=== PATIENT | female | born 1975 | race Hispanic/Latino ===

== ENCOUNTER 2018-02-20 11:23 | Inpatient (IN) | payer BC, OTHER ==
[~2018-02-20] VITALS: Ht 175.3 cm; Wt 71.7 kg
[2018-02-20 12:35] LABS: BASOPHILS # (AUTO) 0.1 (0.0-0.1); BASOPHILS % 0.9 % (0.0-1.0); EOSINOPHILS # (AUTO) 0.1 (0.0-0.4); HEMATOCRIT 42.9 % (34.2-44.1); HEMOGLOBIN 13.5 g/dL (12.0-16.0); LYMPHOCYTES # (AUTO) 2.9 (1.0-3.2); LYMPHOCYTES % 36.6 % (18.0-39.1); MEAN CORPUSCULAR HEMOGLOBIN 27.8 pg (28-32); MEAN CORPUSCULAR HGB CONC 31.5 g/dL (31-35); MEAN CORPUSCULAR VOLUME 88.3 fL (81-99); MONOCYTES # (AUTO) 0.5 (0.2-0.8); MONOCYTES % 6.5 % (4.4-11.3); NEUTROPHILS # (AUTO) 4.3 (2.1-6.9); NEUTROPHILS % 54.7 % (38.7-80.0); PLATELET COUNT 467 x10e3/uL (140-360); RED BLOOD COUNT 4.86 x10e6/uL (3.6-5.1); RED CELL DISTRIBUTION WIDTH 14.8 % (11.7-14.4)
[2018-02-20 12:52] LABS: ALANINE AMINOTRANSFERASE 12 IU/L (0-55); ALBUMIN 3.5 g/dL (3.5-5.0); ALBUMIN/GLOBULIN RATIO 0.7 (0.8-2.0); ALKALINE PHOSPHATASE 85 IU/L (40-150); ANION GAP 13.8 mmol/L (8-16); BLOOD UREA NITROGEN 10 mg/dL (7-26); BUN/CREATININE RATIO 14 (6-25); CALCIUM 9.7 mg/dL (8.4-10.2); CARBON DIOXIDE 27 mmol/L (22-29); CHLORIDE 100 mmol/L (98-107); CREATININE, SERUM 0.74 mg/dL (0.57-1.11); EST GLOMERULAR FILTRATION RATE > 60 ML/MIN (60-); GLUCOSE 81 mg/dL (74-118); POTASSIUM 3.8 mmol/L (3.5-5.1); SODIUM 137 mmol/L (136-145)
[2018-02-20 13:35] LABS: COLOR,URINE YELLOW (YELLOW)
[2018-02-20 13:36] LABS: BILIRUBIN,URINE NEGATIVE (NEGATIVE); KETONES,URINE NEGATIVE (NEGATIVE); NITRITE,URINE POSITIVE (NEGATIVE); PROTEIN,URINE DIPSTICK NEGATIVE (NEGATIVE); URINE UROBILINOGEN 0.2 mg/dL (0.2 - 1)
[2018-02-20 13:41] LABS: WBC,URINE (MAN) 21-50 /HPF (0-5)
[2018-02-20 13:43] LABS: CLARITY,URINE HAZY (CLEAR); EPITHELIAL CELLS,URINE MODERATE /LPF; LEUKOCYTE ESTERASE ,URINE 1+ (NEGATIVE)
[2018-02-20 13:45] LABS: BACTERIA,URINE MODERATE /HPF
[2018-02-20] MEDS ORDERED: HYDROCODONE/APAP 5MG-325MG TAB PO ONE (14:30)
[2018-02-20] MEDS: SODIUM CHLORIDE 0.9% 1000ML 1,000 ML IV SCH (15:15)
[2018-02-20] MEDS ORDERED: LORAZEPAM INJ 2 MG/ML VIAL IV ONE (15:15)
[2018-02-20] MEDS: ONDANSETRON HCL INJ 2 MG/ML VIAL IV PRN (16:12)
[2018-02-20] MEDS: CEFEPIME HCL 1 GM VIAL IV SCH ×2 (16:12→21:54)
[2018-02-20] MEDS: MORPHINE SULFATE 2 MG/ML SYR IV PRN ×2 (16:12→22:09)
--- NOTE | 2018-02-20 16:39 | Diagnostic Imaging Report ---
PROCEDURE: CT ABDOMEN AND PELVIS WITH CONTRAST TECHNIQUE: The abdomen and pelvis were scanned utilizing a multidetector helical scanner from the diaphragm to the lesser trochanter after the IV administration of 100 cc of Isovue 370 and the oral administration of water. Coronal and sagittal multiplanar reformations were obtained. COMPARISON: None. INDICATIONS: FLANK PAIN, OBSTRUCTION, PYELONEPHRITIS FINDINGS: LOWER THORAX: Unremarkable HEPATOBILIARY: Decreased attenuation of the hepatic parenchyma compared to the spleen, consistent with steatosis. No focal lesions. No biliary ductal dilation. Cholecystectomy clips. SPLEEN: No splenomegaly. PANCREAS: No focal masses or ductal dilatation. ADRENALS: No adrenal nodules. KIDNEYS/URETERS: Symmetrical enhancement. Minimal right cortical striations. Moderate bilateral hydronephrosis and bilateral mild hydroureter, with abrupt changing caliber at the posterior aspect of the mass described below. No renal or ureteral calculi. 1.0 x 0.8 cm mostly exophytic lesion in the mid to inferior right kidney (series 2 image 37 and coronal image 60), with the measured density of 57 HU. No other focal lesions. PELVIC ORGANS/BLADDER: Bladder is unremarkable. There is an approximately 13.4 x 9.9 x 12.4 cm heterogeneously enhancing mass in the uterus, likely representing a large fibroid. No adnexal masses. PERITONEUM / RETROPERITONEUM: No free air or fluid. LYMPH NODES: No lymphadenopathy. VESSELS: Unremarkable. GI TRACT: No distention or wall thickening. BONES AND SOFT TISSUES: No aggressive lytic lesions. Bilateral gluteal region soft tissue calcified granulomas. IMPRESSION: 1. Moderate bilateral hydronephrosis and bilateral mild hydroureter secondary to obstruction from large uterine fibroid. No renal or ureteral calculi. 2. Minimal right cortical striations, which may represent mild pyelonephritis, in the appropriate clinical setting. 3. High density 1.0 cm, mostly exophytic lesion in the mid to inferior right kidney, which is indeterminate. This can be assessed with renal ultrasound. 4. Hepatic steatosis. Frank Farmer M.D. Dictated by: Frank Farmer M.D. on 02/20/2018 at 16:39 Electronically approved by: Frank Farmer M.D. on 02/20/2018 at 16:39
[2018-02-20 17:12] VITALS: BP 124/63
[2018-02-20] MEDS ORDERED: IOPAMIDOL 370 MG/ML 200 ML INFUS..BTL INJ ONE (17:12)
[2018-02-20] MEDS ORDERED: SODIUM CHLORIDE 0.9% 50ML 50 ML ONE (17:12)
[2018-02-20 18:16] VITALS: BP 124/63
[2018-02-20 18:29] VITALS: BP 124/63
[2018-02-20 20:00] VITALS: BP 99/54
[2018-02-21] VITALS (7 sets, daily range): BP systolic 90–109; BP diastolic 49–71
[2018-02-21] MEDS: SODIUM CHLORIDE 0.9% 1000ML 1,000 ML IV SCH ×3 (03:44→20:27)
[2018-02-21] MEDS: MORPHINE SULFATE 2 MG/ML SYR IV PRN ×4 (04:50→22:15)
[2018-02-21] MEDS: CEFEPIME HCL 1 GM VIAL IV SCH ×2 (06:17→20:27)
[2018-02-21] MEDS: ONDANSETRON HCL INJ 2 MG/ML VIAL IV PRN ×3 (12:38→22:15)
--- NOTE | 2018-02-21 14:06 | History and Physical ---
CHIEF COMPLAINT: Recurrent urinary tract infection. PCP: Dr. Teja Alvarenga. HISTORY: This is a 42-year-old female who has been treated by Dr. Alvarenga for the past 2 months with recurrent urinary tract infection. The infection did not improve. As a matter of fact, she was having increasing abdominal pain. She had increase in dysuria. The patient came to the hospital for further evaluation. Here, the patient had a urinalysis showing that her urine remained with 1+ leukocyte esterase and moderate bacteria. The patient may have multi-resistant infection, but her urine culture is still pending. The imaging test that was done is showing that the patient has basically moderate bilateral hydronephrosis and bilateral mild hydroureter secondary to obstruction from a large uterine fibroid. There was no renal or ureteral calculi. The patient is otherwise stable. She does have high density 1.0 cm right kidney lesion. Further evaluation is still pending. PAST MEDICAL HISTORY: Recurrent urinary tract infections. PAST SURGICAL HISTORY: Two C-sections, cholecystectomy, appendectomy, and tummy tuck. SOCIAL HISTORY: Patient does not smoke or use alcohol. No recreational drugs. ALLERGIES: NO KNOWN ALLERGY. HOME MEDICATIONS: None. REVIEW OF SYSTEMS: As mentioned. PHYSICAL EXAMINATION: VITAL SIGNS: Temperature is 98, blood pressure 95/49, pulse rate 74, and respirations 18. GENERAL: The patient is in no acute distress. She is awake. HEENT: Normocephalic, atraumatic. Anicteric. NECK: Supple grossly. PULMONARY: Clear. CARDIOVASCULAR: Regular rate and rhythm. ABDOMEN: Soft. EXTREMITIES: No cyanosis or edema. NEUROLOGIC: No gross focal deficit. LABORATORY: Sodium is 137, potassium 3.8, chloride 100, bicarb 27, BUN 10, creatinine 0.7, and glucose 81. WBC is 8, hemoglobin 13.5, hematocrit 42.9, and platelets 467. IMPRESSION 1. Urinary outlet obstruction secondary to large uterine fibroid. 2. Bilateral hydronephrosis and hydroureter. 3. Recurrent urinary tract infection, possible multidrug resistant. 4. Urinary retention. PLAN: Kam catheter. Consultation with Dr. Yared Del Rosario and associates. Antibiotics. IV fluid. Regular diet. We will monitor the patient closely and check the urine culture. Job#: [id number] SAMUEL
[2018-02-22] VITALS (8 sets, daily range): BP systolic 100–136; BP diastolic 50–70
[2018-02-22] MEDS: ONDANSETRON HCL INJ 2 MG/ML VIAL IV PRN ×2 (02:15→06:25)
[2018-02-22] MEDS: MORPHINE SULFATE 2 MG/ML SYR IV PRN ×3 (02:15→19:21)
[2018-02-22] MEDS: CEFEPIME HCL 1 GM VIAL IV SCH (08:51)
[2018-02-22] MEDS ORDERED: MEROPENEM 1GM 100 ML IV SCH (09:15)
[2018-02-22] MEDS ORDERED: MEROPENEM 1 GM VIAL IV SCH ×2 (09:26→12:00)
--- NOTE | 2018-02-22 11:37 | Consultation ---
DATE OF CONSULTATION: REASON FOR CONSULTATION: Pyelonephritis, UTI with multidrug-resistant ESBL. Thank you so much for asking me to see this patient. HISTORY OF PRESENT ILLNESS: This is a very pleasant, 42-year-old female who has in the last 2 months been having problem with UTI. She starting by having infection with pain on the right side. She saw her physician who gave her oral antibiotic. She got better a few days later and then had pain on the left side. Again, she was given an antibiotic for a week and she got better. Then she started to have pain again. Then a urine culture was obtained and showed that she had multidrug-resistant pathogen. She was tried on nitrofurantoin without any improvement, so the patient was sent to the hospital. She was started originally on cefepime, but the urine culture is showing that she has a multidrug resistance, sensitive only to meropenem. Infectious disease was consulted today. I had a long discussion with the patient and her . The patient was admitted. Her laboratory data reviewed. Her urine showed positive leukocyte esterase, bacteria multidrug-resistant E. coli. The CT scan showed bilateral hydronephrosis, bilateral mild hydroureter secondary to obstruction from a large uterine fibroid tumor. PAST MEDICAL HISTORY: UTI recently. PAST SURGICAL HISTORY: Two C-sections, cholecystectomy, appendectomy, tummy tuck. SOCIAL HISTORY: There is no smoking, drug abuse or alcohol abuse. FAMILY HISTORY: Noncontributory. REVIEW OF SYSTEMS HEENT: There is no headache, visual changes or hearing changes. GI: There is no nausea, no vomiting, no diarrhea. CARDIAC: There is no arrhythmia or chest pain. NEURO: No seizure activity or local weakness. A 14-point review of systems was all negative. LABORATORY DATA: White count 7.89, hemoglobin 13.5, sodium 137, potassium 3.8, creatinine 0.74. PHYSICAL EXAMINATION GENERAL: She is currently alert and oriented, does not seem to be in acute distress. VITALS: Stable, currently afebrile. HEENT: She is not icteric. NECK: Supple. CHEST: Clear. HEART: S1 and S2. No murmur. ABDOMEN: Soft. Bowel sounds present. No tenderness. EXTREMITIES: No edema. SKIN: There is no rash. You can feel the uterus in the suprapubic area. IMPRESSION: Urinary tract infection in a patient with extended spectrum beta lactamase with obstruction secondary to large uterus. Will treat her with IV meropenem 500 IV q.6. Eventually, she will need a hysterectomy but would like to get rid of the infection first. Will follow with you. Will arrange outpatient IV antibiotics. Will discuss with [facility] in the morning. Job#: [id number]
[2018-02-22] MEDS ORDERED: MEROPENEM 500 MG VIAL IV SCH (12:00)
[2018-02-22] MEDS: SODIUM CHLORIDE 0.9% 1000ML 1,000 ML IV SCH (14:12)
[2018-02-22] MEDS: MEROPENEM 500 MG VIAL IV SCH ×2 (15:12→20:52)
--- NOTE | 2018-02-22 16:22 | Diagnostic Imaging Report ---
EXAMINATION: CHEST XRAY LINE PLACEMENT INDICATION: \S\PICC LINE INSERTION \S\[id number] \S\1512 \S\N COMPARISON: None FINDINGS: AP view TUBES and LINES: Left PICC with tip overlying the cavoatrial junction. LUNGS: Lungs are well inflated. Lungs are clear. There is no evidence of pneumonia or pulmonary edema. PLEURA: No pleural effusion or pneumothorax. HEART AND MEDIASTINUM: The cardiomediastinal silhouette is unremarkable.. BONES AND SOFT TISSUES: No acute osseous lesion. Soft tissues are unremarkable. UPPER ABDOMEN: No free air under the diaphragm. IMPRESSION: No acute thoracic abnormality. Left PICC with tip overlying the cavoatrial junction. Signed by: Dr. Donna May M.D. on 02/22/2018 4:19 PM
[2018-02-22] MEDS: ENOXAPARIN SOD INJ 40 MG/0.4 ML SYR SC SCH (17:01)
[2018-02-23 00:08] VITALS: BP 97/60
[2018-02-23] MEDS: MORPHINE SULFATE 2 MG/ML SYR IV PRN ×4 (01:55→22:30)
[2018-02-23] MEDS: MEROPENEM 500 MG VIAL IV SCH ×4 (03:00→21:15)
[2018-02-23] MEDS: SODIUM CHLORIDE 0.9% 1000ML 1,000 ML IV SCH ×2 (04:00→17:08)
[2018-02-23 04:42] VITALS: BP 113/55
[2018-02-23 08:00] VITALS: BP 112/63
[2018-02-23] MEDS: ONDANSETRON HCL INJ 2 MG/ML VIAL IV PRN ×3 (08:15→22:30)
[2018-02-23 12:00] VITALS: BP 96/59
[2018-02-23 16:00] VITALS: BP 99/63
[2018-02-23] MEDS: ENOXAPARIN SOD INJ 40 MG/0.4 ML SYR SC SCH (17:51)
[2018-02-23 20:00] VITALS: BP 116/63
[2018-02-24] VITALS (7 sets, daily range): BP systolic 104–125; BP diastolic 59–74
[2018-02-24] MEDS: MORPHINE SULFATE 2 MG/ML SYR IV PRN ×3 (02:31→21:05)
[2018-02-24] MEDS: ONDANSETRON HCL INJ 2 MG/ML VIAL IV PRN ×3 (02:35→21:05)
[2018-02-24] MEDS: MEROPENEM 500 MG VIAL IV SCH ×4 (05:19→20:32)
--- NOTE | 2018-02-24 05:22 | Consultation ---
DATE OF CONSULTATION: February 23, 2018 REASON FOR CONSULTATION: The patient is a 42-year-old para 2 with last menstrual period 14 years ago, status post endometrial ablation, who presents with recurrent UTIs for approximately 2 months, and was admitted and found to have urinary outlet obstruction secondary to large uterine fibroid. She currently has an ESBL positive UTI and is in the hospital being treated for this. The patient reports that she had 2 C-sections, the last one 14 years ago or more and she had an endometrial ablation due to abnormal uterine bleeding approximately 14 years ago. She has had no periods at all from that time until she has recently noticed a little bit of discharge which she assumes is her menses trying to resume. PAST MEDICAL HISTORY: Remarkable for the recurrent UTI over the last couple of months, psoriatic arthritis, psoriasis, esophageal reflux, hypothyroidism, and bipolar. PAST SURGICAL HISTORY: Remarkable for 2 C-sections, cholecystectomy, appendectomy, abdominoplasty which was done in [place], colonoscopy with 3 polyps removed in 1999, and breast augmentation as well as an endometrial ablation as mentioned before. SOCIAL HISTORY: Remarkable for a past history of smoking 2 packs a day, which she stopped when prior to having her plastic surgery. However, she does vape and states that she vaped 22 mg of nicotine a day, but now she has cut down to 6 mg of nicotine a day in her vaping. She denies any alcohol or IV drug abuse. ALLERGIES: SHE HAS NO KNOWN DRUG ALLERGIES. MEDICATIONS OUTPATIENT: Temazepam, alprazolam, Adderall, Pristiq, metformin, Trulicity, Synthroid, Protonix, hydrocodone, and SIMPONI injections for the psoriasis. PHYSICAL EXAMINATION: VITAL SIGNS: The patient is currently afebrile with vital signs stable. ABDOMEN: Reveals a very well-healed abdominoplasty scar and uterus approximately 16 to 18 weeks size, hard and nodular, pressing on the bladder and on the pelvic sidewalls. PELVIC: Deferred at this time. She has a Kam catheter in, draining clear urine. LABORATORY DATA: Her latest white count 7.89, hemoglobin 13.5, hematocrit 42.9, and platelets 467,000 with 54% neutrophils and 36% lymphs. Chemistry showed sodium 137, potassium 3.8, chloride 100, bicarb 27, BUN 10, creatinine 0.7, glucose 81. Urinalysis showed 1+ leukocyte esterase, 21 to 50 white cells, moderate epithelial and moderately high bacteria. Her urine test was negative. IMPRESSION: Large fibroid uterus compressing the bladder, ureters, and pelvic sidewall; and urinary outlet obstruction secondary to the large fibroids. PLAN: Urology consult to prepare for surgery, probable ureteral stent placement and also recommendation for when to proceed with surgery relative to the urinary infection. Preliminary urology consultation recommends awaiting at least 7 days of antibiotics for treatment of the ESBL bacteria prior to performing hysterectomy. Patient was given options of considering Lupron to shrink the fibroid prior to surgery as well as just going through to hysterectomy and we will discuss these issues over next few days as the patient is getting treated for her infection. Patient also has concerns for loss of orgasms with the hysterectomy being done, she was given the option of preservation of the cervix, although I explained to her that it is not absolutely proven that this would preserve orgasms, but she will consider her options and let me know her decision in this regard in terms of total abdominal hysterectomy versus supracervical hysterectomy. Job#: [id number]
[2018-02-24] MEDS: SODIUM CHLORIDE 0.9% 1000ML 1,000 ML IV SCH (05:51)
--- NOTE | 2018-02-24 08:04 | Consultation ---
DATE OF CONSULTATION: February 24, 2018 UROLOGY CONSULTATION REASON FOR CONSULTATION: Hydronephrosis. HISTORY OF PRESENT ILLNESS: Ms. Gloria is a very pleasant 42-year-old female admitted to the hospital with multidrug-resistance meropenem sensitive only UTI. She was found to have hydronephrosis for which urology consultation was sought. She denied dysuria. Denied gross hematuria. PAST MEDICAL HISTORY: times 2, cholecystectomy, appendectomy, tummy tuck. MEDICATIONS: Please see MAR. ALLERGIES: NKDA. SOCIAL HISTORY: No smoking. No drinking. FAMILY HISTORY: No urological disease. . PHYSICAL EXAMINATION GENERAL: A young female in no acute distress. VITALS: Temperature 95.4, pulse 59, respirations 18, blood pressure 117/61. HEENT: Sclerae are anicteric. NECK: Supple. BACK: Without costovertebral angle tenderness bilaterally. ABDOMEN: Soft. It is nontender. No palpable masses or palpable hernias. No lymphadenopathy. : Normal female external genitalia. EXTREMITIES: Without edema. NEUROLOGIC: Nonfocal. PSYCH: Appropriate mood. SKIN: Intact. PERTINENT LABORATORY DATA: CT scan revealing a 1 cm right mid-exophytic renal mass, bilateral hydronephrosis, mild, question pyelonephritis. Hemoglobin 13, hematocrit 42, and platelet count 467,000. White cell count 7890. Sodium 137, potassium 3.8, chloride 100, bicarb 27, BUN 10, creatinine 0.74, glucose 81. Urinalysis showing 21-50 whites and 6-10 reds. IMPRESSION 1. Renal mass. 2. Hydronephrosis, bilateral. 3. Uterine fibroids. 4. Extended spectrum beta-lactamase multidrug-resistant urinary tract infection. 5. Microscopic hematuria. PLAN: 1 will obtain a renal ultrasound to elucidate the etiology of the renal mass. For the patient's hydronephrosis, she will need stenting. For now, would continue with the meropenem. Thank you for allowing me to participate in the care of the patient. We will happy to follow her along with you and stent as needed. Job#: [id number] PR
[2018-02-24] MEDS ORDERED: FLUCONAZOLE 100 MG TAB PO NR (08:45)
[2018-02-24] MEDS: ENOXAPARIN SOD INJ 40 MG/0.4 ML SYR SC SCH (16:46)
[2018-02-25] VITALS (7 sets, daily range): BP systolic 100–124; BP diastolic 52–64
[2018-02-25] MEDS: MEROPENEM 500 MG VIAL IV SCH ×4 (03:00→21:46)
[2018-02-25 06:54] LABS: BASOPHILS # (AUTO) 0.1 (0.0-0.1); BASOPHILS % 0.8 % (0.0-1.0); EOSINOPHILS # (AUTO) 0.3 (0.0-0.4); EOSINOPHILS % 3.6 % (0.0-6.0); HEMATOCRIT 38.7 % (34.2-44.1); HEMOGLOBIN 12.3 g/dL (12.0-16.0); LYMPHOCYTES # (AUTO) 3.2 (1.0-3.2); LYMPHOCYTES % 38.5 % (18.0-39.1); MEAN CORPUSCULAR HGB CONC 31.8 g/dL (31-35); MONOCYTES # (AUTO) 0.8 (0.2-0.8); NEUTROPHILS # (AUTO) 3.9 (2.1-6.9); NEUTROPHILS % 46.9 % (38.7-80.0); PLATELET COUNT 353 x10e3/uL (140-360); RED CELL DISTRIBUTION WIDTH 14.4 % (11.7-14.4)
[2018-02-25 07:20] LABS: ALANINE AMINOTRANSFERASE 11 IU/L (0-55); ALBUMIN 2.8 g/dL (3.5-5.0); ALBUMIN/GLOBULIN RATIO 0.7 (0.8-2.0); ALKALINE PHOSPHATASE 75 IU/L (40-150); BLOOD UREA NITROGEN 6 mg/dL (7-26); BUN/CREATININE RATIO 9 (6-25); CALCIUM 9.3 mg/dL (8.4-10.2); CARBON DIOXIDE 29 mmol/L (22-29); CHLORIDE 102 mmol/L (98-107); CREATININE, SERUM 0.69 mg/dL (0.57-1.11); EST GLOMERULAR FILTRATION RATE > 60 ML/MIN (60-); GLUCOSE 77 mg/dL (74-118); SODIUM 139 mmol/L (136-145)
[2018-02-25] MEDS: ONDANSETRON HCL INJ 2 MG/ML VIAL IV PRN ×3 (07:40→19:30)
[2018-02-25] MEDS: MORPHINE SULFATE 2 MG/ML SYR IV PRN ×3 (07:40→19:30)
[2018-02-25] MEDS: FLUCONAZOLE 100 MG TAB PO SCH (09:00)
--- NOTE | 2018-02-25 10:51 | Diagnostic Imaging Report ---
PROCEDURE:US RETROPERITONEAL ( KIDNEY ). COMPARISON:Abdominal CT for 2018. INDICATIONS:Renal Mass TECHNIQUE: Nino-scale and color sonographic images of the bilateral kidneys and bladder where obtained in transverse and longitudinal planes. FINDINGS: RIGHT KIDNEY: 11.8 x 5.3 x 5.2 cm, cortex 1.9 cm Cysts: None Solid masses: Interpolar/inferior pole hyperechoic 0.5 x 0.6 x 0.8 cm lesion. This corresponds to the lesion on CT 02/20/2018 measuring 57 HU. Stones: None Hydronephrosis: Moderate Echogenicity: Normal LEFT KIDNEY: 12.2 x 5.8 x 5.6 cm, cortex 2.4 cm Cysts: None Solid masses: None Stones: None Hydronephrosis: None Echogenicity: Normal Bladder: Collapsed with Kam catheter in place. Partially visualized fibroid measuring at least 12.8 x 8.1 x 11.2 cm. CONCLUSION: 1. Right renal lesion in question does not appear to represent a cyst and remains indeterminate. Recommend further evaluation with MRI renal mass protocol. 2. Resolution of left hydronephrosis. Persistent moderate right hydronephrosis. Dictated by: Contreras Cheng M.D. on 02/25/2018 at 10:52 Electronically approved by: Contreras Cheng M.D. on 02/25/2018 at 10:52
[2018-02-25] MEDS: ENOXAPARIN SOD INJ 40 MG/0.4 ML SYR SC SCH (17:00)
[2018-02-26] VITALS (7 sets, daily range): BP systolic 98–118; BP diastolic 49–79
[2018-02-26] MEDS: MORPHINE SULFATE 2 MG/ML SYR IV PRN ×5 (03:45→23:08)
[2018-02-26] MEDS: ONDANSETRON HCL INJ 2 MG/ML VIAL IV PRN ×3 (03:45→23:07)
[2018-02-26] MEDS: MEROPENEM 500 MG VIAL IV SCH ×4 (03:45→21:11)
[2018-02-26] MEDS: FLUCONAZOLE 100 MG TAB PO SCH (08:30)
[2018-02-26] MEDS ORDERED: MAGNESIUM HYDROXIDE 30 ML UDC PO PRN (09:15)
[2018-02-26] MEDS ORDERED: GADOBENATE DIMEGLUMINE 1 ML IV ONE (11:59)
--- NOTE | 2018-02-26 13:47 | Diagnostic Imaging Report ---
PROCEDURE: MRI ABDOMEN WOW TECHNIQUE: Multiplanar multisequence aspiration of the abdomen was performed without and with contrast. Axial dual echo, diffusion weighted, T2 fat-sat, coronal SSFSE and 2-D fiesta. Pre-and post dynamic post contrast LAVA sequences. Contrast: 15 mL MultiHance COMPARISON: Renal ultrasound 02/25/2018. CT abdomen pelvis 02/20/2018. INDICATIONS: Pyelonephritis. FINDINGS: LIVER: Mild hepatic steatosis. No focal hepatic lesions. BILIARY: No ductal dilatation or filling defect. PANCREAS: No mass or ductal dilatation. SPLEEN: No splenomegaly. ADRENALS: No nodules. KIDNEYS: No change in moderate bilateral hydronephrosis and hydroureter. No striated nephrograms visualized. 0.8 cm exophytic lesion in the mid/lower pole of the right kidney remain unchanged. There is enhancement without washout. This component demonstrates loss of signal on out of phase imaging. Along the anterior aspect there is a macroscopic fat containing region which may be part of this lesion or may represent adjacent retroperitoneal fat. PERITONEUM / RETROPERITONEUM: No upper abdominal free fluid. LYMPH NODES: No upper abdominal lymphadenopathy. VESSELS: Unremarkable. Partially visualized pelvic mass. BONES AND SOFT TISSUES: Unremarkable. IMPRESSION: 1. 0.8 cm lesion in the right kidney that demonstrates enhancement but also demonstrates loss of signal on out of phase imaging. This likely represents an angiomyolipoma. 2. Persistent moderate bilateral hydroureter and hydronephrosis. Dictated by: Chi Martinez M.D. on 02/26/2018 at 13:47 Electronically approved by: Chi Martinez M.D. on 02/26/2018 at 13:47
[2018-02-26] MEDS: SENNA-S TABLET PO SCH (17:15)
[2018-02-26] MEDS: ENOXAPARIN SOD INJ 40 MG/0.4 ML SYR SC SCH (17:15)
[2018-02-26] MEDS ORDERED: ALPRAZOLAM 0.25 MG TAB PO PRN (18:00)
[2018-02-27 00:20] VITALS: BP 105/63
[2018-02-27] MEDS: ONDANSETRON HCL INJ 2 MG/ML VIAL IV PRN ×4 (03:33→17:25)
[2018-02-27] MEDS: MEROPENEM 500 MG VIAL IV SCH ×4 (03:33→20:33)
[2018-02-27] MEDS: MORPHINE SULFATE 2 MG/ML SYR IV PRN ×5 (03:34→21:27)
[2018-02-27 06:03] VITALS: BP 97/64
[2018-02-27 08:00] VITALS: BP 105/57
[2018-02-27] MEDS: SENNA-S TABLET PO SCH ×2 (08:16→16:10)
[2018-02-27] MEDS: FLUCONAZOLE 100 MG TAB PO SCH (08:16)
[2018-02-27] MEDS ORDERED: IOPAMIDOL 300MG/ML 50ML INFUS..BTL IV ONE (08:39)
[2018-02-27] MEDS ORDERED: BELLADONNA/OPIUM 60 MG SUPP PR ONE (08:39)
[2018-02-27] MEDS ORDERED: FENTANYL CITRATE/PF 100MCG/2 ML INJ ONE ×2 (11:15→14:56)
[2018-02-27 12:00] VITALS: BP 126/69
[2018-02-27] MEDS: PHENAZOPYRIDINE HCL 100 MG TAB PO SCH ×2 (13:46→18:00)
[2018-02-27] MEDS ORDERED: MIDAZOLAM HCL 2 MG/2 ML VIAL ONE (14:56)
[2018-02-27] MEDS ORDERED: PROPOFOL IV EMULSION 10 MG/ML 20 ML VIAL ONE (15:19)
[2018-02-27] MEDS ORDERED: ONDANSETRON HCL INJ 2 MG/ML VIAL ONE (15:19)
[2018-02-27] MEDS ORDERED: DEXAMETHASONE SOD PHOS INJ 4 MG/ML VIAL ONE (15:19)
[2018-02-27] MEDS ORDERED: LIDOCAINE HCL 2% LOCAL INJ 5 ML SDV VIAL INJ ONE (15:19)
[2018-02-27] MEDS ORDERED: SEVOFLURANE INHAL SOLN 250 ML PEN BTL ONE (15:19)
[2018-02-27 16:00] VITALS: BP 137/84
[2018-02-27] MEDS: ENOXAPARIN SOD INJ 40 MG/0.4 ML SYR SC SCH (16:10)
[2018-02-27 20:00] VITALS: BP 114/61
[2018-02-28] VITALS: BP 110/66
[2018-02-28] MEDS: MORPHINE SULFATE 2 MG/ML SYR IV PRN ×4 (01:13→13:40)
[2018-02-28] MEDS: MEROPENEM 500 MG VIAL IV SCH ×4 (03:15→20:30)
[2018-02-28 04:00] VITALS: BP 115/68
[2018-02-28 05:56] LABS: BASOPHILS # (AUTO) 0.1 (0.0-0.1); BASOPHILS % 0.4 % (0.0-1.0); EOSINOPHILS % 0.3 % (0.0-6.0); HEMATOCRIT 39.9 % (34.2-44.1); HEMOGLOBIN 12.8 g/dL (12.0-16.0); LYMPHOCYTES # (AUTO) 3.5 (1.0-3.2); LYMPHOCYTES % 26.4 % (18.0-39.1); MEAN CORPUSCULAR HEMOGLOBIN 27.8 pg (28-32); MEAN CORPUSCULAR HGB CONC 32.1 g/dL (31-35); MEAN CORPUSCULAR VOLUME 86.6 fL (81-99); MONOCYTES # (AUTO) 0.9 (0.2-0.8); MONOCYTES % 6.8 % (4.4-11.3); NEUTROPHILS # (AUTO) 8.6 (2.1-6.9); NEUTROPHILS % 65.8 % (38.7-80.0); RED BLOOD COUNT 4.61 x10e6/uL (3.6-5.1); RED CELL DISTRIBUTION WIDTH 13.7 % (11.7-14.4)
[2018-02-28 06:18] LABS: ANION GAP 12.1 mmol/L (8-16); BLOOD UREA NITROGEN 7 mg/dL (7-26); BUN/CREATININE RATIO 11 (6-25); CALCIUM 9.2 mg/dL (8.4-10.2); CARBON DIOXIDE 29 mmol/L (22-29); CHLORIDE 98 mmol/L (98-107); CREATININE, SERUM 0.63 mg/dL (0.57-1.11); EST GLOMERULAR FILTRATION RATE > 60 ML/MIN (60-); GLUCOSE 102 mg/dL (74-118); POTASSIUM 4.1 mmol/L (3.5-5.1); SODIUM 135 mmol/L (136-145)
[2018-02-28 06:33] LABS: PLATELET COUNT 380 x10e3/uL (140-360)
[2018-02-28 08:00] VITALS: BP 122/56
[2018-02-28] MEDS: SENNA-S TABLET PO SCH ×2 (08:24→16:55)
[2018-02-28] MEDS: FLUCONAZOLE 100 MG TAB PO SCH (08:24)
[2018-02-28] MEDS: PHENAZOPYRIDINE HCL 100 MG TAB PO SCH ×3 (08:24→17:41)
[2018-02-28] MEDS: ONDANSETRON HCL INJ 2 MG/ML VIAL IV PRN ×3 (09:40→18:43)
[2018-02-28 12:00] VITALS: BP 119/71
--- NOTE | 2018-02-28 14:05 | Progress Note ---
DATE: PROGRESS NOTE SUBJECTIVE: Ms. Gloria is doing well. There is no new complaint. REVIEW OF SYSTEMS HEENT: Negative. PULMONARY: Negative. CARDIAC: Negative. : Negative. OBJECTIVE GENERAL: She is currently alert and oriented, does not seem to be in any acute distress. VITAL SIGNS: Stable and afebrile. HEENT: She does not appear icteric. NECK: Supple. CHEST: Clear. COR: S1 and S2. ABDOMEN: Soft. Bowel sounds present. No tenderness. EXTREMITIES: No edema. SKIN: No rash. IMPRESSION 1. Pyelonephritis, severe. 2. Outlet obstruction secondary to tumor in the uterus, status post stent placement, seems better. 3. Acute tubular necrosis, better. Apparently, she has really significant right pyelonephritis. PLAN: The plan is to discharge her with IV meropenem 500 mg IV q.8 for 2 weeks. She is going to have surgery on the . Depending on the finding of the surgery, clinical progress may decide if we continue with IV or not. Discussed with the patient. We will follow. Job#: [id number] NOEL
[2018-02-28] MEDS ORDERED: MORPHINE SULFATE 2 MG/ML SYR IV PRN (15:00)
[2018-02-28] MEDS ORDERED: OXYCODONE/ACETAMINOPHEN 5-325 1 EACH TABLET PO PRN (15:00)
[2018-02-28 16:00] VITALS: BP 105/55
[2018-02-28] MEDS ORDERED: HYDROCODONE/APAP 10MG-325MG TAB PO PRN (16:30)
[2018-02-28] MEDS ORDERED: FENTANYL 25 MCG/HR PATCH TOP SCH (16:30)
[2018-02-28] MEDS: ENOXAPARIN SOD INJ 40 MG/0.4 ML SYR SC SCH (16:55)
[2018-02-28] MEDS: HYDROMORPHONE 1MG/1ML INJ IV PRN (18:43)
[2018-02-28 20:00] VITALS: BP 106/65
[2018-03-01 00:25] VITALS: BP 95/59
[2018-03-01] MEDS: MEROPENEM 500 MG VIAL IV SCH ×3 (03:00→16:00)
[2018-03-01 04:34] VITALS: BP 89/58
[2018-03-01] MEDS ORDERED: SODIUM CHLORIDE 0.9% 500ML 500 ML ONE (05:14)
[2018-03-01] MEDS ORDERED: SODIUM CHLORIDE 0.9% 1000ML 1,000 ML IV STA (05:28)
[2018-03-01 06:28] VITALS: BP 103/70
[2018-03-01] MEDS: HYDROMORPHONE 1MG/1ML INJ IV PRN (07:50)
[2018-03-01] MEDS: ONDANSETRON HCL INJ 2 MG/ML VIAL IV PRN ×2 (07:50→11:40)
[2018-03-01 08:00] VITALS: BP 128/60
[2018-03-01] MEDS: SENNA-S TABLET PO SCH ×2 (08:05→16:03)
[2018-03-01] MEDS: PHENAZOPYRIDINE HCL 100 MG TAB PO SCH ×3 (08:05→17:24)
[2018-03-01] MEDS: FLUCONAZOLE 100 MG TAB PO SCH (08:05)
[2018-03-01] MEDS ORDERED: MORPHINE SULFATE 2 MG/ML SYR IV PRN (10:15)
[2018-03-01 12:00] VITALS: BP 113/57
--- NOTE | 2018-03-01 14:07 | Progress Note ---
DATE: PROGRESS NOTE SUBJECTIVE: Ms. Gloria is doing well. She is still having some issues with pain, but pain management is following the patient. REVIEW OF SYSTEMS: Otherwise, no fevers and no chills. PHYSICAL EXAMINATION GENERAL: She is currently alert and oriented, does not seem to be in acute distress. VITAL SIGNS: Stable, currently afebrile. HEENT: She is not icteric. NECK: Supple. CHEST: Clear. COR: No murmur. ABDOMEN: Soft. IMPRESSION 1. Urinary tract infection with extended spectrum beta-lactamases. 2. Obstruction of urinary outlet. 3. Renal mass. 4. Hydronephrosis bilateral. PLAN: Continue with meropenem as an outpatient for 14 days until she comes back for surgery. Recheck CBC, urine, and chem panel, which could be done as an outpatient. I discussed with the patient. Job#: [id number] NOEL
[2018-03-01] MEDS ORDERED: ACETAMINOPHEN/CODEINE 300MG - 30MG TAB PO PRN (15:30)
[2018-03-01] MEDS ORDERED: ERTAPENEM 1GM/NS 100ML 100 ML IV SCH (15:45)
[2018-03-01 16:00] VITALS: BP 102/59
--- NOTE | 2018-03-01 16:56 | Discharge Summary ---
FINAL DISCHARGE DIAGNOSES 1. Status post cystoscopy with retrograde bilateral stent placement in the ureters. 2. Extended spectrum beta-lactamase urinary tract infection. 3. Uterine fibroids. 4. Psoriatic arthritis. CONSULTANTS: [facility], urology, infectious disease. VITAL SIGNS: Temperature is 97.5, pulse 88, respiratory rate 18, blood pressure 113/57, pulse ox 98% on room air. LAB FINDINGS: Show white count to be 13, hemoglobin 12.8, hematocrit 39.9, and platelets of 380,000. Chemistry: Sodium 135, potassium 4.1, chloride 98, bicarb 29, anion gap of 12, BUN is 7, creatinine is 0.63, glucose is 102. Calcium is 9.2. LFTs were normal. Albumin was 2.8. Urinalysis was consistent with UTI. Urine test was negative. MICROBIOLOGY: Urine culture was ESBL E. coli sensitive to Merrem. Repeat urine culture was negative. IMAGING STUDIES: CT of the abdomen and pelvis showed impression of bilateral hydronephrosis with bilateral mild hydroureter secondary to obstruction from a large uterine fibroid. Minimal right cortical striations, which may represent mild pyelonephritis. High density 1 cm mostly exophytic lesion in the mid to inferior right kidney, which is indeterminate. Hepatic steatosis. The patient will follow with urology. Renal ultrasound showed right renal lesion, question of it to be a cyst and indeterminate. Resolution of the left hydronephrosis. Persistent moderate right hydronephrosis. MRI of the abdomen showed a 0.8-cm lesion in the right kidney demonstrating enhancement, but also demonstrated loss of signal on out of phase imaging. This likely represents an angiomyolipoma. There is persistent moderate bilateral hydroureter and hydronephrosis. HOSPITAL COURSE: A 42-year-old female who comes in with complaints of underlying dysuria. Having recurrent UTI over the last 2 months. Also, complains of an increasing abdominal pain on arrival to the ED. Imaging studies were consistent with bilateral hydronephrosis and enlarged uterine fibroids in which urology and [facility] respectively were consulted. Per [facility], the patient will likely need to have a total abdominal hysterectomy, which has been scheduled by the [facility] doctor on March 16, 2018, which was coordinated with the urologist. In relation to her hydronephrosis, the patient had status post cystoscopy with retrograde with bilateral ureteral stent placement placed by urology. Patient also had subsequently underlying UTI ESBL E. coli in which ID was consulted. Patient was on IV Merrem while here. The patient also had a PICC line, and will need to follow up with Dr. Mckay, infectious disease tomorrow for March 02, 2018, for IV antibiotic arrangement. Patient also needs to follow with [facility], as well as urology on March 16, 2018, for scheduled surgery coordinated between the 2 physicians. On discharge, the patient was doing well with no other complaints. Her vital signs were stable. Labs reviewed and stable. Patient was seen and evaluated, examined thoroughly on the day of discharge with no other complaints. Patient verbalized understanding and agrees to the plan of care to follow up accordingly as an outpatient with the appropriate consultants, urology and [facility] on March 16, 2018, for scheduled surgery and ID tomorrow on March 02, 2018, Dr. Mckay and PCP in 1 week. DISCHARGE MEDICATIONS: See med reconciliation form, including Tylenol No. 4 with codeine 1-2 tabs every 4 hours p.r.n. for pain, 30 tablets were given to her. DISPOSITION: Home. CONDITION: Stable. DIET: Heart-healthy. FOLLOWUP: With urology and [facility] on March 16, 2018, for scheduled surgery, infectious disease tomorrow on March 02, 2018, Dr. Mckay, and PCP in 1 week. In the event of any worsening symptoms, the patient was to come back to the ED for further evaluation. Discharge summary took greater than 35 minutes. JUSTINO GONZALEZ MD Job#: [id number] NC
[2018-03-01] MEDS ORDERED: ERTAPENEM 1 GM VIAL IV SCH (17:00)
== END 2018-03-01 19:47 | disposition home or self-care (01) | DRG 694 ==
LOC: ER 11:23 → ERHOLD 15:57 → IMCU 16:20 → OBSVTOIN 02-22 09:10 → MED/SURG2 02-22 14:59
PROVIDERS: ADMIT Internal Medicine; ATTEND Internal Medicine
PROC: 02HV33Z Insertion of Infusion Device into Superior Vena Cava, Percutaneous Approach (ICD-10-PCS; principal; 2018-02-22)
PROC: B5181ZA Fluoroscopy of Superior Vena Cava using Low Osmolar Contrast, Guidance (ICD-10-PCS; 2018-02-22)
PROC: 0T788DZ Dilation of Bilateral Ureters with Intraluminal Device, Via Natural or Artificial Opening Endoscopic (ICD-10-PCS; 2018-02-27)
PROC: BT1F1ZZ Fluoroscopy of Left Kidney, Ureter and Bladder using Low Osmolar Contrast (ICD-10-PCS; 2018-02-27)
PROC: BT1D1ZZ Fluoroscopy of Right Kidney, Ureter and Bladder using Low Osmolar Contrast (ICD-10-PCS; 2018-02-27)
DX: N13.39 Other hydronephrosis (principal); L40.59 Other psoriatic arthropathy; N10 Acute pyelonephritis; B96.20 Unspecified Escherichia coli [E. coli] as the cause of diseases classified elsewhere; D25.9 Leiomyoma of uterus, unspecified; Z16.12 Extended spectrum beta lactamase (ESBL) resistance; N28.89 Other specified disorders of kidney and ureter; F17.290 Nicotine dependence, other tobacco product, uncomplicated; M06.9 Rheumatoid arthritis, unspecified; Z87.440 Personal history of urinary (tract) infections
CPT/HCPCS: 36415; 36569; 71045; 74177; 74183; 74420; 76770; 80048; 80053; 81001; 81025; 85025; 87086; 87186; 99284; C2617; G0378; J0692; J1100; J1170; J1335; J1650; J2001; J2060; J2185; J2250; J2270; J2405; J7030; J7040; Q9967

== ENCOUNTER 2018-03-16 09:13 | Inpatient (IN) | payer BC ==
[2018-03-13 16:59] LABS: BASOPHILS # (AUTO) 0.1 (0.0-0.1); BASOPHILS % 0.9 % (0.0-1.0); EOSINOPHILS # (AUTO) 0.5 (0.0-0.4); EOSINOPHILS % 4.2 % (0.0-6.0); HEMATOCRIT 41.4 % (34.2-44.1); HEMOGLOBIN 13.3 g/dL (12.0-16.0); LYMPHOCYTES # (AUTO) 2.9 (1.0-3.2); LYMPHOCYTES % 26.7 % (18.0-39.1); MEAN CORPUSCULAR HEMOGLOBIN 27.8 pg (28-32); MEAN CORPUSCULAR HGB CONC 32.1 g/dL (31-35); MEAN CORPUSCULAR VOLUME 86.6 fL (81-99); MONOCYTES # (AUTO) 0.6 (0.2-0.8); MONOCYTES % 5.5 % (4.4-11.3); NEUTROPHILS # (AUTO) 6.7 (2.1-6.9); NEUTROPHILS % 62.5 % (38.7-80.0); PLATELET COUNT 621 x10e3/uL (140-360); RED BLOOD COUNT 4.78 x10e6/uL (3.6-5.1); RED CELL DISTRIBUTION WIDTH 13.8 % (11.7-14.4)
[2018-03-13 17:05] LABS: CLARITY,URINE CLOUDY (CLEAR); COLOR,URINE YELLOW (YELLOW); LEUKOCYTE ESTERASE ,URINE 1+ (NEGATIVE); NITRITE,URINE NEGATIVE (NEGATIVE); PROTEIN,URINE DIPSTICK TRACE (NEGATIVE)
[2018-03-13 17:06] LABS: BILIRUBIN,URINE NEGATIVE (NEGATIVE); KETONES,URINE NEGATIVE (NEGATIVE); URINE UROBILINOGEN 0.2 mg/dL (0.2 - 1)
[2018-03-13 17:16] LABS: ALANINE AMINOTRANSFERASE 10 IU/L (0-55); ALBUMIN 3.3 g/dL (3.5-5.0); ALBUMIN/GLOBULIN RATIO 0.8 (0.8-2.0); ALKALINE PHOSPHATASE 70 IU/L (40-150); ANION GAP 12.9 mmol/L (8-16); BLOOD UREA NITROGEN 5 mg/dL (7-26); BUN/CREATININE RATIO 8 (6-25); CALCIUM 9.5 mg/dL (8.4-10.2); CARBON DIOXIDE 27 mmol/L (22-29); CHLORIDE 101 mmol/L (98-107); CREATININE, SERUM 0.61 mg/dL (0.57-1.11); EST GLOMERULAR FILTRATION RATE > 60 ML/MIN (60-); GLUCOSE 78 mg/dL (74-118); POTASSIUM 3.9 mmol/L (3.5-5.1); SODIUM 137 mmol/L (136-145)
--- NOTE | 2018-03-13 17:27 | Diagnostic Imaging Report ---
PROCEDURE: Frontal and lateral views of the chest. COMPARISON: 02/22/2018 INDICATIONS: PREOP CXR FINDINGS: Lines/tubes: Left upper extremity PICC line has its tip at the cavoatrial junction. Lungs: The lungs are well inflated and clear. There is no evidence of pneumonia or pulmonary edema. Pleura: There is no pleural effusion or pneumothorax. Heart and mediastinum: The heart and the mediastinum are normal. Bones: No acute bony abnormality. IMPRESSION: 1. No acute cardiopulmonary disease. Dictated by: Naun Leon M.D. on 03/13/2018 at 17:28 Electronically approved by: Naun Leon M.D. on 03/13/2018 at 17:28
[~2018-03-16] VITALS: Ht 154.7 cm; Wt 73.5 kg
[~2018-03-16 09:13] MED LIST: METFORMIN PO; NORCO 10-325 T1 EACH PO; PRISTIQ ER50 MG PO; PROTONIX PO; TEMAZEPAM15 MG PO; TRULICITY SQ
--- OUTSIDE RECORDS SUMMARY | 2018-03-16 09:17 | XMS REPORT | Continuity of Care Document ---
Author Author [facility] Organization [facility] Address [address] [place] [address] Phone Unavailable Care Team Providers Care Plain Clothes Police Officer Name Role Phone LORNA HOROWITZ PCP Insurance Providers Guarantor Margarita Rios Address [address] [place] [address] Email [facility] Policy Number [id number] Subscriber's Name JuaniRoge X Relationship 01 Group Number [id number] Group Name [employer] Effective Date 17 Advance Directives Directive Response Recorded Date/Time Does the patient have an advance directive? No 02/20/18 6:05pm If yes, is advance directive on file with [facility]? No 02/20/18 6:05pm If not on file with [facility] will patient provide a copy? No 02/20/18 6:05pm Do you have a Directive to Physician? No 02/20/18 2:26pm Do you have a Medical Power of Interior Paneler? No 02/20/18 2:26pm Do you have an out of hospital Do Not Resuscitate Order? No 02/20/18 2:26pm Do you have any special needs we should be aware of? No 02/20/18 2:26pm Do you have a support person here with you today? Yes 02/20/18 2:26pm Did patient receive Notice of Privacy Practices? Yes 02/20/18 2:26pm Did patient receive patient rights and responsibilities? Yes 02/20/18 2:26pm Problems Medical Problem Onset Date Status Pyelonephritis Unknown Medications No medication information available. Social History Social History Problem Response Recorded Date/Time Onset Date Status Hx Psychiatric Problems Y - Bipolar 02/20/2018 6:05pm Not Applicable Not Applicable Hx Eating Disorder No 02/20/2018 6:05pm Not Applicable Not Applicable Hx Substance Use Disorder No 02/20/2018 6:05pm Not Applicable Not Applicable Hx Depression Yes 02/20/2018 6:05pm Not Applicable Not Applicable Hx Alcohol Use No 02/20/2018 6:05pm Not Applicable Not Applicable Hx Substance Use Treatment No 02/20/2018 6:05pm Not Applicable Not Applicable Hx Physical Abuse No 02/20/2018 6:05pm Not Applicable Not Applicable Smoking Status Start Date Stop Date Current every day smoker Hospital Discharge Instructions No hospital discharge instruction information available. 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 Immunizations No immunization information available. Vital Signs Acute Vital Signs Vital Response Date/Time Temperature (Fahrenheit) 96.7 degrees F (97.6 - 99.5) 03/01/2018 4:00pm Pulse Pulse Rate (adult) 73 bpm (60 - 90) 03/01/2018 4:00pm Respiratory Rate 18 bpm (12 - 24) 03/01/2018 4:00pm Blood Pressure 102/59 mm Hg 03/01/2018 4:00pm Height 5 ft 9 in 02/20/2018 11:33am Weight 158 lb 02/24/2018 1:34am Body Mass Index 23.3 kg/m^2 02/24/2018 1:34am Results Laboratory Results Test Name Result Units Flags Reference Collection Date/Time Result Date/ Time Comments White Blood Count 13.14 x10e3/uL # H 4.8-10.8 02/28/2018 5:00am 2017 6:33am VERIFIED PREVIOUS RESULTS Red Blood Count 4.61 x10e6/uL 3.6-5.1 02/28/2018 5:00am 02/28/2018 6: 33am Hemoglobin 12.8 g/dL 12.0-16.0 02/28/2018 5:00am 02/28/2018 6:33am Hematocrit 39.9 % 34.2-44.1 02/28/2018 5:00am 02/28/2018 6:33am Mean Corpuscular Volume 86.6 fL 81-99 02/28/2018 5:00am 02/28/2018 6: 33am Mean Corpuscular Hemoglobin 27.8 pg L 28-32 02/28/2018 5:00am 2017 6:33am Mean Corpuscular Hemoglobin Concent 32.1 g/dL 31-35 02/28/2018 5:00am 02/28/2018 6:33am Red Cell Distribution Width 13.7 % 11.7-14.4 02/28/2018 5:00am 2017 6:33am Platelet Count 380 x10e3/uL H 140-360 02/28/2018 5:00am 02/28/2018 6: 33am VERIFIED PREVIOUS RESULTS Neutrophils (%) (Auto) 65.8 % 38.7-80.0 02/28/2018 5:00am 02/28/2018 6: 33am Lymphocytes (%) (Auto) 26.4 % 18.0-39.1 02/28/2018 5:00am 02/28/2018 6: 33am Monocytes (%) (Auto) 6.8 % 4.4-11.3 02/28/2018 5:00am 02/28/2018 6: 33am Eosinophils (%) (Auto) 0.3 % 0.0-6.0 02/28/2018 5:00am 02/28/2018 6: 33am Basophils (%) (Auto) 0.4 % 0.0-1.0 02/28/2018 5:00am 02/28/2018 6:33am IM GRANULOCYTES % 0.3 % 0.0-1.0 02/28/2018 5:00am 02/28/2018 6:33am Neutrophils # (Auto) 8.6 H 2.1-6.9 02/28/2018 5:00am 02/28/2018 6: 33am Lymphocytes # (Auto) 3.5 H 1.0-3.2 02/28/2018 5:00am 02/28/2018 6: 33am Monocytes # (Auto) 0.9 H 0.2-0.8 02/28/2018 5:00am 02/28/2018 6:33am Eosinophils # (Auto) 0.0 0.0-0.4 02/28/2018 5:00am 02/28/2018 6:33am Basophils # (Auto) 0.1 0.0-0.1 02/28/2018 5:00am 02/28/2018 6:33am Absolute Immature Granulocyte (auto 0.04 x10e3/uL 0-0.1 02/28/2018 5: 00am 02/28/2018 6:33am Urine Color YELLOW YELLOW 02/20/2018 11:34am 02/20/2018 1:45pm Urine Clarity HAZY CLEAR 02/20/2018 11:34am 02/20/2018 1:45pm Urine Specific [place] 1.015 1.010-1.025 02/20/2018 11:34am 2017 1:45pm Urine pH 6 5 - 7 02/20/2018 11:34am 02/20/2018 1:45pm Urine Leukocyte Esterase 1+ H NEGATIVE 02/20/2018 11:34am 02/20/2018 1 :45pm Urine Nitrite POSITIVE H NEGATIVE 02/20/2018 11:34am 02/20/2018 1: 45pm Urine Protein NEGATIVE NEGATIVE 02/20/2018 11:34am 02/20/2018 1:45pm Urine Glucose (UA) NEGATIVE NEGATIVE 02/20/2018 11:34am 02/20/2018 1: 45pm Urine Ketones NEGATIVE NEGATIVE 02/20/2018 11:34am 02/20/2018 1:45pm Urine Urobilinogen 0.2 mg/dL 0.2 - 1 02/20/2018 11:34am 02/20/2018 1: 45pm Urine Bilirubin NEGATIVE NEGATIVE 02/20/2018 11:34am 02/20/2018 1: 45pm Urine Blood TRACE H NEGATIVE 02/20/2018 11:34am 02/20/2018 1:45pm Urine WBC 21-50 /HPF H 0-5 02/20/2018 11:34am 02/20/2018 1:45pm Urine RBC 6-10 /HPF H 0-5 02/20/2018 11:34am 02/20/2018 1:45pm Urine Bacteria MODERATE /HPF H NONE 02/20/2018 11:34am 02/20/2018 1: 45pm Urine Epithelial Cells MODERATE /LPF NONE 02/20/2018 11:34am 2017 1:45pm Urine Test NEGATIVE NEGATIVE 02/20/2018 11:34am 02/20/2018 1:13pm Sodium Level 135 mmol/L L 136-145 02/28/2018 5:00am 02/28/2018 6:20am Potassium Level 4.1 mmol/L 3.5-5.1 02/28/2018 5:00am 02/28/2018 6:20am Chloride Level 98 mmol/L 98-107 02/28/2018 5:00am 02/28/2018 6:20am Carbon Dioxide Level 29 mmol/L 22-29 02/28/2018 5:00am 02/28/2018 6: 20am Anion Gap 12.1 mmol/L 8-16 02/28/2018 5:00am 02/28/2018 6:20am Blood Urea Nitrogen 7 mg/dL 7-26 02/28/2018 5:00am 02/28/2018 6:20am Creatinine 0.63 mg/dL 0.57-1.11 02/28/2018 5:00am 02/28/2018 6:20am BUN/Creatinine Ratio 11 6-25 02/28/2018 5:00am 02/28/2018 6:20am Estimat Glomerular Filtration Rate > 60 ML/MIN 60- 02/28/2018 5:00 6:20am Ranges were taken from the National Kidney Disease Education Program and the National Kidney Foundation literature. Reference ranges: 60 or greater: Normal 16-59 (for 3 consecutive months): Chronic kidney disease 15 or less: Kidney failure Glucose Level 102 mg/dL 74-118 02/28/2018 5:00am 02/28/2018 6:20am Calcium Level 9.2 mg/dL 8.4-10.2 02/28/2018 5:00am 02/28/2018 6:20am Total Bilirubin 0.3 mg/dL 0.2-1.2 02/25/2018 6:20am 02/25/2018 7:22am Aspartate Amino Transf (AST/SGOT) 8 IU/L 5-34 02/25/2018 6:20am 2017 7:22am Alanine Aminotransferase (ALT/SGPT) 11 IU/L 0-55 02/25/2018 6:20am 09/2018 7:22am Total Protein 6.9 g/dL 6.5-8.1 02/25/2018 6:20am 02/25/2018 7:22am Albumin 2.8 g/dL L 3.5-5.0 02/25/2018 6:20am 02/25/2018 7:22am Globulin 4.1 g/dL H 2.3-3.5 02/25/2018 6:20am 02/25/2018 7:22am Albumin/Globulin Ratio 0.7 L 0.8-2.0 02/25/2018 6:20am 02/25/2018 7: 22am Alkaline Phosphatase 75 IU/L 40-150 02/25/2018 6:20am 02/25/2018 7: 22am Microbiology Results Procedure Source Organism/Result Collection Date/Time Result Date/Time Result Status Urine Culture Urine,Random ESCHERICHIA COLI-ESBL 02/20/2018 11:34am 2017 8:55am Final Procedures Procedure Status Date Provider(s) Cystoscopy with retrograde pyelography Completed 02/27/18 XIOMARA BARNARD MD Computed tomography of abdomen and pelvis with contrast Active 02/20/18 AJ TOMPKINS MD Ultrasound, renal Active 02/25/18 GIANNA HALE MD Magnetic resonance imaging of abdomen without then with contrast Active 02/26 XIOMARA BARNARD MD Encounters Encounter Location Arrival/Admit Date Discharge/Depart Date Attending Provider Discharged Inpatient [facility] 02/22/18 9:10am 03/01/18 7:47pm ROSALIO CHAVEZ MD
--- OUTSIDE RECORDS SUMMARY | 2018-03-16 09:17 | XMS REPORT ---
Author Author [facility] Address Unknown Phone Unavailable Care Team Providers Care Fleet Salesperson Name Role Phone LALO ALBERTO Unavailable Unavailable ROSALIO CHAVEZ Unavailable Unavailable Problems This patient has no known problems. Allergies, Adverse Reactions, Alerts This patient has no known allergies or adverse reactions. Medications This patient has no known medications. Results Test Description Test Time Test Comments Text Results Atomic Results Result Comments CHEST 2 VIEWS [place] [address] Patient Name: MICAH RIOS MR #: [id number] : 1975 Age/Sex: 42/F Req #: [id number] Adm Physician: Ordered by: LALO ALBERTO MD Report #: [id number] Location: OR Room/Bed: Procedure: [id number] DX/CHEST 2 VIEWS Exam Date: 03/13/18 Exam Time: 1713 REPORT STATUS: Signed PROCEDURE: Frontal and lateral views of the chest. COMPARISON: 02/22/2018 INDICATIONS: PREOP CXR FINDINGS: Lines/tubes: Left upper extremity PICC line has its tip at the cavoatrial junction. Lungs: The lungs are well inflated and clear. There is no evidence of pneumonia or pulmonary edema. Pleura: There is no pleural effusion or pneumothorax. Heart and mediastinum: The heart and the mediastinum are normal. Bones: No acute bony abnormality. IMPRESSION: 1. No acute cardiopulmonary disease. Dictated by: Bernard Leon M.D. on 03/13/2018 at 17:28 Electronically approved by: Bernard Leon M.D. on 03/13/2018 at 17:28 Dictated By: BERNARD LEON MD 27 Transcribed By: JR on 03/13/181727 COPY TO: LALO ALBERTO MD MRI ABDOMEN WOW [place] [address] Patient Name: MICAH RIOS MR #: [id number] : 1975 Age/Sex: 42/F Req #: [id number] Adm Physician: ROSLAIO CHAVEZ MD Ordered by: XIOMARA BARNARD MD Report # : [id number] Location: [facility]/SURG2 Room/Bed: [facility] Procedure: [id number] MRI/MRI ABDOMEN WOW Exam Date: Exam Time: REPORT STATUS: Signed PROCEDURE: MRI ABDOMEN WOW TECHNIQUE: Multiplanar multisequence aspiration of the abdomen was performed without and with contrast. Axial dual echo, diffusion weighted, T2 fat-sat, coronal SSFSE and 2-D fiesta. Pre-and post dynamic post contrast LAVA sequences. Contrast: 15 mL MultiHance COMPARISON: Renal ultrasound . CT abdomen pelvis 02/20/2018. INDICATIONS: Pyelonephritis. FINDINGS: LIVER: Mild hepatic steatosis. No focal hepatic lesions. BILIARY : No ductal dilatation or filling defect. PANCREAS: No mass or ductal dilatation. SPLEEN: No splenomegaly. ADRENALS: No nodules. KIDNEYS: No change in moderate bilateral hydronephrosis and hydroureter. No striated nephrograms visualized. 0.8 cm exophytic lesion in the mid/lower pole of the right kidney remain unchanged. There is enhancement without washout. This component demonstrates loss of signal on out of phase imaging. Along the anterior aspect there is a macroscopic fat containing region which may be part of this lesion or may represent adjacent retroperitoneal fat. PERITONEUM / RETROPERITONEUM: No upper abdominal free fluid. LYMPH NODES: No upper abdominal lymphadenopathy. VESSELS: Unremarkable. Partially visualized pelvic mass. BONES AND SOFT TISSUES: Unremarkable. IMPRESSION: 1. 0.8 cm lesion in the right kidney that demonstrates enhancement but also demonstrates loss of signal on out of phase imaging. This likely represents an angiomyolipoma. 2. Persistent moderate bilateral hydroureter and hydronephrosis. Dictated by: Chi Biswas M.D. on 02/26/2018 at 13:47 Electronically approved by: Chi Biswas M.D. on 2017 at 13:47 Dictated By: CHI BISWAS MD 1347 Transcribed By: JR on 02/26/18 1347 COPY TO: XIOMARA BARNARD MD US RENAL RETROPERITONEAL COMP [place] [address] Patient Name: MICAH RIOS MR #: [id number] : 1975 Age/Sex: 42/F Req #: [id number] Adm Physician: ROSALIO CHAVEZ MD Ordered by: GIANNA HALE MD Report #: [id number] Location: MED/SURG2 Room/Bed: [facility] Procedure: [id number] US/US RENAL RETROPERITONEAL COMP Exam Date: 02/25/18 Exam Time: 0835 REPORT STATUS: Signed PROCEDURE: US RETROPERITONEAL ( KIDNEY ). COMPARISON: Abdominal CT for 2018. INDICATIONS: Renal Mass TECHNIQUE: Nino-scale and color sonographic images of the bilateral kidneys and bladder where obtained in transverse and longitudinal planes. FINDINGS: RIGHT KIDNEY : 11.8 x 5.3 x 5.2 cm, cortex 1.9 cm Cysts: None Solid masses: Interpolar /inferior pole hyperechoic 0.5 x 0.6 x 0.8 cm lesion. This corresponds to the lesion on CT 02/20/2018 measuring 57 HU. Stones: None Hydronephrosis: Moderate Echogenicity: Normal LEFT KIDNEY: 12.2 x 5.8 x 5.6 cm, cortex 2.4 cm Cysts: None Solid masses: None Stones: None Hydronephrosis: None Echogenicity: Normal Bladder: Collapsed with Kam catheter in place. Partially visualized fibroid measuring at least 12.8 x 8.1 x 11.2 cm. CONCLUSION: 1. Right renal lesion in question does not appear to represent a cyst and remains indeterminate. Recommend further evaluation with MRI renal mass protocol. 2. Resolution of left hydronephrosis. Persistent moderate right hydronephrosis. Dictated by: Contreras Porter M.D. on 02/25/2018 at 10:52 Electronically approved by: Contreras Porter M.D. on 02/25/2018 at 10:52 Dictated By: CONTRERAS PORTER MD 105 Transcribed By : JR on 02/25/18 105 COPY TO: GIANNA HALE MD CHEST XRAY LINE PLACEMENT [place] [address] Patient Name: MICAH RIOS MR #: [id number] : 1975 Age/Sex: 42/F Req #: [id number] Adm Physician: ROSALIO CHAVEZ MD Ordered by: ZACK WHITE MD Report #: [id number] Location: MED/SURG2 Room/Bed: [facility] Procedure: [id number] DX/CHEST XRAY LINE PLACEMENT Exam Date: 02/22/18 Exam Time: 1512 REPORT STATUS: Signed EXAMINATION: CHEST XRAY LINE PLACEMENT INDICATION: COMPARISON: None FINDINGS: AP view TUBES and LINES: Left PICC with tip overlying the cavoatrial junction. LUNGS: Lungs are well inflated. Lungs are clear. There is no evidence of pneumonia or pulmonary edema. PLEURA: No pleural effusion or pneumothorax. HEART AND MEDIASTINUM: The cardiomediastinal silhouette is unremarkable.. BONES AND SOFT TISSUES: No acute osseous lesion. Soft tissues are unremarkable. UPPER ABDOMEN: No free air under the diaphragm. IMPRESSION: No acute thoracic abnormality. Left PICC with tip overlying the cavoatrial junction. Signed by: Dr. Donna May M.D. on 02/22/2018 4:19 PM Dictated By: DONNA MAY MD 18 COPY TO: ZACK WHITE MD CT ABDOMEN/PELVIS W [place] [address] Patient Name: MICAH RIOS MR #: [id number] : 1975 Age/Sex: 42/F Req #: [id number] Adm Physician: ROSALIO CHAVEZ MD Ordered by: AJ TOMPKINS MD Report #: [id number] Location: [facility] Room/Bed: [place] [address] Procedure: CT/CT ABDOMEN/PELVIS W Exam Date : 02/20/18 Exam Time: 1555 REPORT STATUS: Signed PROCEDURE: CT ABDOMEN AND PELVIS WITH CONTRAST TECHNIQUE: The abdomen and pelvis were scanned utilizing a multidetector helical scanner from the diaphragm to the lesser trochanter after the IV administration of 100 cc of Isovue 370 and the oral administration of water. Coronal and sagittal multiplanar reformations were obtained. COMPARISON : None. INDICATIONS: FLANK PAIN, OBSTRUCTION, PYELONEPHRITIS FINDINGS: LOWER THORAX: Unremarkable HEPATOBILIARY: Decreased attenuation of the hepatic parenchyma compared to the spleen, consistent with steatosis. No focal lesions. No biliary ductal dilation. Cholecystectomy clips. SPLEEN: No splenomegaly. PANCREAS: No focal masses or ductal dilatation. ADRENALS: No adrenal nodules. KIDNEYS/URETERS: Symmetrical enhancement. Minimal right cortical striations. Moderate bilateral hydronephrosis and bilateral mild hydroureter, with abrupt changing caliber at the posterior aspect of the mass described below. No renal or ureteral calculi. 1.0 x 0.8 cm mostly exophytic lesion in the mid to inferior right kidney (series 2 image 37 and coronal image 60), with the measured density of 57 HU. No other focal lesions. PELVIC ORGANS/BLADDER: Bladder is unremarkable. There is an approximately 13.4 x 9.9 x 12.4 cm heterogeneously enhancing mass in the uterus, likely representing a large fibroid. No adnexal masses. PERITONEUM / RETROPERITONEUM: No free air or fluid. LYMPH NODES: No lymphadenopathy. VESSELS: Unremarkable. GI TRACT: No distention or wall thickening. BONES AND SOFT TISSUES: No aggressive lytic lesions. Bilateral gluteal region soft tissue calcified granulomas. IMPRESSION: 1. Moderate bilateral hydronephrosis and bilateral mild hydroureter secondary to obstruction from large uterine fibroid. No renal or ureteral calculi. 2. Minimal right cortical striations , which may represent mild pyelonephritis, in the appropriate clinical setting. 3. High density 1.0 cm, mostly exophytic lesion in the mid to inferior right kidney, which is indeterminate. This can be assessed with renal ultrasound. 4. Hepatic steatosis. Frank Moody M.D. Dictated by: Frank Moody M.D. on 02/20/2018 at 16:39 Electronically approved by: Frank Moody M.D. on 02/20/2018 at 16:39 Dictated By: FRANK MOODY MD 1639 Transcribed By: JR on 02/20/18 1639 COPY TO: AJ TOMPKINS MD
[2018-03-16] MEDS ORDERED: PANTOPRAZOLE SO40 MG PO (09:46)
[2018-03-16] MEDS ORDERED: METFORMIN HCL500 MG PO (09:46)
[2018-03-16] MEDS ORDERED: MEROPENEM 1 GM VIAL IV ONE (13:20)
[2018-03-16] MEDS ORDERED: SIMETHICONE 80 MG CHEW PO PRN (13:30)
[2018-03-16] MEDS ORDERED: ACETAMINOPHEN 325 MG TAB PO PRN (13:30)
[2018-03-16] MEDS ORDERED: BISACODYL 10 MG SUPP PR PRN (13:30)
[2018-03-16] MEDS ORDERED: DOCUSATE SODIUM 100 MG CAP PO PRN (13:30)
[2018-03-16] MEDS ORDERED: DULAGLUTIDE SQ SCH (13:30)
[2018-03-16] MEDS ORDERED: HYDROCODONE/APAP 10MG-325MG TAB PO PRN (13:30)
[2018-03-16] MEDS ORDERED: NALOXONE HCL INJ 0.4 MG/ML AMP IV PRN (13:30)
[2018-03-16] MEDS ORDERED: FENTANYL CITRATE/PF 100MCG/2 ML INJ ONE ×2 (13:59→17:46)
[2018-03-16] MEDS ORDERED: MORPHINE SULFATE 1 MG/ML 30ML PCA ONE (14:04)
[2018-03-16] MEDS ORDERED: HYDROMORPHONE 1MG/1ML INJ ONE ×4 (14:11→17:32)
[2018-03-16] MEDS ORDERED: KETOROLAC TROMETHAMINE 30 MG/ML VIAL ONE ×2 (14:27→18:15)
[2018-03-16] MEDS ORDERED: MORPHINE SULFATE 2 MG/ML SYR ONE ×3 (14:53→15:08)
--- NOTE | 2018-03-16 15:04 | Operative Report ---
DATE OF PROCEDURE: March 16, 2018 PREOPERATIVE DIAGNOSIS: Bilateral ureteral obstruction secondary to large fibroid uterus. POSTOPERATIVE DIAGNOSES 1. Bilateral ureteral obstruction secondary to large fibroid uterus. 2. A 3-cm left ovarian cyst or mass. TITLES OF PROCEDURE 1. Total abdominal hysterectomy. 2. Right salpingectomy. 3. Left salpingo-oophorectomy. APPRAISER LAND: Dr. Honorio Boyle. Dr. Khan opened and closed the patient due to her previous abdominoplasty surgery and the patient's request. ANESTHESIA: General with Dr. Monteiro and Jesús, furniture removalist's assistant. INDICATIONS FOR THE OPERATION: The patient is a 42-year-old, 2, para 2, with last menstrual period in 2007, status post endometrial ablation and tubal ligation, who presents with recurrent UTIs, now ESBL-positive E. coli growing out of her urine, who was consulted to me because of ureteral obstruction secondary to a large fibroid uterus. She is now here for a total abdominal hysterectomy to relieve the obstruction on the ureters. Stents were placed on February 27, 2018, and she has been treated with meropenem to clear her ESBL-positive E. coli infection. She is, therefore, taken to the operating room at this time. Incidentally, the patient will have the tubes removed as well to reduce her risk of ovarian cancer. If any abnormal findings are found on the ovary, the ovaries will possibly be removed. FINDINGS AT SURGERY: There was an 18 to 20 week size large fibroid uterus impinging on the pelvic sidewalls. The previously placed stents in the ureters were palpable on the right and left sides. The right tube and ovary were within normal limits. The left tube was status post tubal ligation, but otherwise within normal limits. The left ovary was abnormal with a 3-cm cystic mass present, which we felt would be silva to excise and, therefore, was done at the time of the surgery. PROCEDURE: The patient was taken to the operating room and placed on the table in the supine position. General anesthesia was administered. A Kam catheter was placed in the bladder for constant drainage. The abdomen was prepared and draped in the usual sterile manner. Dr. Khan, plastic surgeon, proceeded to open the patient per her request due to previous large abdominoplasty scar. At this point, he opened the abdomen, subcutaneous tissue and fascia carefully. Once he completed his preparatory work, we were ready to proceed with the hysterectomy. He had opened the fascia for us. Then we opened the peritoneum over the uterus and opened superiorly to the edge of exposure and opened inferior to the bladder reflection. The uterus was then brought up without any retractors and brought out through the incision. It was large, approximately 18 to 20 weeks size, but quite mobile. There were no adhesions except on the bladder to the uterus at the site of her previous 2 sections. At this point, there was a large amount of vasculature noted to the uterus. We, therefore, made a window in the broad ligament on the right. Prior to clamping the infundibulopelvic ligament, we grasped the tube with a [place]. Using the LigaSure instrument, we excised the tube, placing the ligature over the mesosalpinx away from the vessels and clamping and moving down the tube to isolate it and remove it from the ovary. There was no bleeding at this point from that portion of the procedure. We then placed a LigaSure over the ovarian vessels on the right side on the uterine side of the ovary. However, this was quite wide. We did fire the LigaSure instrument, but due to the size of the vessel, it was felt we should also place clamps. We doubly ligated the right vessel and mesosalpinx with #0 Vicryl suture. There was good hemostasis in evidence, and the right ovary was left behind with right tubing still attached to the uterus. At this point, we skeletonized the uterus with a LigaSure and tied off the right round ligament or clamped it and it using the LigaSure instrument. Then attention was turned to the left side. The left tube and ovary were identified. The left ovary was abnormal in appearance, with a 3-cm cystic mass. It was felt that the left ovary with the mass should be removed. Therefore, we just clamped the infundibulopelvic ligament. Because the vessel size was greater than 7 mm, we clamped using Zeppelin clamps, cut off the infundibulopelvic ligament and then tied it off with 2 sutures of #0 Vicryl suture. Following this, again, we skeletonized the uterus on the left side using the LigaSure instrument, coming down to the uterine vessels. At this point, the peritoneum was opened anteriorly from round ligament to round ligament. The left round ligament was using the LigaSure instrument. Then, using sharp dissection, the bladder was brought down and out of the field, using sharp dissection and then the sponge stick once a plane was found. Then the uterine vessels were clamped, cut and tied off with #0 Vicryl suture. There were good hemostasis in evidence at the uterine vessels. Then we brought down the bladder further. Then the cardinal ligament on each side was clamped, cut and tied off with #0 Vicryl suture. Then the uterosacral ligaments on each side were clamped, cut and tied off with #0 Vicryl suture. Then the vaginal angles were clamped, cut and tied off with #0 chromic suture and tagged for later identification. Then, right-angle Zeppelins were placed over the vaginal cuff. The uterine specimen was cut away using the Carly scissors. Then the vaginal cuff was closed with loose interrupted stitches of #0 chromic suture. A few small bleeders were noted on the cuff, and these were tied off with figure-of-8 stitches of #0 chromic suture. Once there was good hemostasis in evidence, we inspected for any further evidence of bleeding. There was 1 small bleeder, which was tied off with figure-of-8 stitch of #0 Vicryl suture. At this point, we palpated the ureters with the stents in. The urine was completely clear at this point with good output. The decision was made to close. We irrigated several times and suctioned. Finding no further evidence of bleeding, the peritoneum was closed with a running stitch of #0 Vicryl suture. We then turned the case over to Dr. Khan, who closed the fascia, the muscles and the skin using a plastic technique, please see his operative report for details, thus completing the procedure. There were no complications noted. Estimated blood loss was 150 mL. The patient tolerated the procedure well and was transferred from the operating room to the recovery room in stable condition. She received meropenem prophylaxis due to her ESBL-positive urinary tract infection. Additionally, Dr. Edgar will remove her stents in approximately a month as he did not want them removed at this time so that her kidneys would be allowed to heal and reduce the risk for recurrent infection. The counts were correct times 3. The patient, again, was transferred from the operating room to the recovery room in stable condition. Job#: [id number]
[2018-03-16] MEDS ORDERED: DEXAMETHASONE SOD PHOS INJ 4 MG/ML VIAL ONE (17:33)
[2018-03-16] MEDS ORDERED: ROCURONIUM BROMIDE 10 MG/ML 5ML VIAL ONE (17:33)
[2018-03-16] MEDS ORDERED: LIDOCAINE HCL 2% JELLY 5 ML TUBE ONE (17:33)
[2018-03-16] MEDS ORDERED: PROPOFOL IV EMULSION 10 MG/ML 20 ML VIAL ONE (17:33)
[2018-03-16] MEDS ORDERED: SEVOFLURANE INHAL SOLN 250 ML PEN BTL ONE (17:33)
[2018-03-16] MEDS ORDERED: ACETAMINOPHEN 1000 MG/100 ML IV ONE (17:33)
[2018-03-16] MEDS ORDERED: LIDOCAINE HCL 2% LOCAL INJ 5 ML SDV VIAL INJ ONE (17:33)
[2018-03-16] MEDS ORDERED: ONDANSETRON HCL INJ 2 MG/ML VIAL ONE (17:33)
[2018-03-16] MEDS ORDERED: MIDAZOLAM HCL 2 MG/2 ML VIAL ONE (17:46)
[2018-03-16 19:00] VITALS: BP 149/70
[2018-03-16] MEDS: MORPHINE SULFATE 1 MG/ML 30ML PCA IV PRN (20:33)
[2018-03-16 20:43] VITALS: BP 149/70
[2018-03-16] MEDS: TEMAZEPAM 15 MG CAP PO SCH (21:00)
[2018-03-16] MEDS ORDERED: MEROPENEM 1GRAM 1 GM in SODIUM CHLORIDE 0.9% 100 ML 100 ML IV SCH (21:00)
[2018-03-16] MEDS: MEROPENEM 1 GM VIAL IV SCH (21:30)
[2018-03-16] MEDS ORDERED: XANAX2 MG PO (22:08)
[2018-03-16] MEDS: LACTATED RINGER'S 1,000 ML IV SCH (23:35)
[2018-03-17] VITALS (7 sets, daily range): BP systolic 94–119; BP diastolic 52–58
[2018-03-17] MEDS: KETOROLAC TROMETHAMINE 30 MG/ML VIAL IV PRN ×3 (02:38→18:49)
[2018-03-17] MEDS: LACTATED RINGER'S 1,000 ML IV SCH ×4 (02:50→22:43)
[2018-03-17] MEDS: MORPHINE SULFATE 1 MG/ML 30ML PCA IV PRN ×2 (06:44→14:01)
[2018-03-17 07:11] LABS: BASOPHILS # (AUTO) 0.1 (0.0-0.1); BASOPHILS % 0.5 % (0.0-1.0); EOSINOPHILS # (AUTO) 0.1 (0.0-0.4); EOSINOPHILS % 0.7 % (0.0-6.0); HEMATOCRIT 33.6 % (34.2-44.1); HEMOGLOBIN 10.8 g/dL (12.0-16.0); LYMPHOCYTES % 24.4 % (18.0-39.1); MEAN CORPUSCULAR HEMOGLOBIN 27.7 pg (28-32); MEAN CORPUSCULAR HGB CONC 32.1 g/dL (31-35); MEAN CORPUSCULAR VOLUME 86.2 fL (81-99); MONOCYTES # (AUTO) 1.1 (0.2-0.8); MONOCYTES % 9.2 % (4.4-11.3); NEUTROPHILS # (AUTO) 8.1 (2.1-6.9); NEUTROPHILS % 64.9 % (38.7-80.0); PLATELET COUNT 439 x10e3/uL (140-360); RED CELL DISTRIBUTION WIDTH 13.4 % (11.7-14.4)
[2018-03-17] MEDS: PANTOPRAZOLE SOD 40 MG TABEC PO SCH ×2 (07:30→08:27)
[2018-03-17 07:48] LABS: ANION GAP 9.9 mmol/L (8-16); BLOOD UREA NITROGEN 5 mg/dL (7-26); BUN/CREATININE RATIO 9 (6-25); CALCIUM 8.5 mg/dL (8.4-10.2); CARBON DIOXIDE 27 mmol/L (22-29); CHLORIDE 105 mmol/L (98-107); CREATININE, SERUM 0.55 mg/dL (0.57-1.11); EST GLOMERULAR FILTRATION RATE > 60 ML/MIN (60-); GLUCOSE 84 mg/dL (74-118); POTASSIUM 3.9 mmol/L (3.5-5.1); SODIUM 138 mmol/L (136-145)
[2018-03-17] MEDS: METFORMIN HCL 500 MG TAB PO SCH ×2 (08:00→08:27)
[2018-03-17] MEDS: DESVENLAFAXINE SUCCINATE 50 MG TAB.SR.24H PO SCH ×2 (08:27→08:34)
[2018-03-17] MEDS: MEROPENEM 1 GM VIAL IV SCH ×2 (08:27→21:33)
--- NOTE | 2018-03-17 13:32 | Consultation ---
DATE OF CONSULTATION: REASON FOR CONSULTATION: UTI, recommendation for antibiotic. Thank you so much for asking me to see this patient. This patient is well known to me from previous admission. The patient is a very pleasant, 42-year-old female who was recently in the hospital with UTI with multidrug resistance. The patient was started on intravenous antibiotic meropenem. The patient has a history of uterine fibroid, which was obstructing the flow of urine. She was treated with IV antibiotic as an outpatient and then she was discharged home with IV antibiotic. Patient was admitted electively to do a hysterectomy. Infectious disease was consulted today to make recommendation in terms of antibiotic. The patient on February 23 was diagnosed with UTI with ESBL. This patient has history of , cholecystectomy, appendectomy, abdominoplasty done in [place], colonoscopy with 3 polyps removed in 1999, breast augmentation and endometrial ablation. History of smoking 2 packs of cigarettes a day, but she stopped just recently before the plastic surgery. Past medical history is also significant for hypothyroidism and GERD. The patient was diagnosed recently with large fibroid uterus. She was seen by urology as well as OB. The patient had a stent placed also because of the obstruction. Patient was admitted this time on March [address] Cadet. The patient underwent surgery on March 16. She underwent total abdominal hysterectomy, right salpingo-oophorectomy, and left salpingo-oophorectomy also. The patient has been seen by urology, and Dr. Edgar recommended that she continue with the stent for another month. Her laboratory data was reviewed. White count is 12.4 today, hemoglobin 10, sodium 138, potassium 3.9, creatinine 0.55. The patient is currently doing well, complaining of pain. No fever, no chills otherwise. No nausea, no vomiting, no diarrhea otherwise. PAST MEDICAL HISTORY: As above. PAST SURGICAL HISTORY: As above. ALLERGIES: NKA. SOCIAL HISTORY: There is no smoking, drug abuse or alcohol abuse. FAMILY HISTORY: Unremarkable. MEDICATIONS: She is currently on meropenem, Toradol, morphine, Restoril, Protonix, Glucophage, Pristiq, Trulicity, [place], Narcan, Colace, Dulcolax, and Tylenol. REVIEW OF SYSTEMS HEENT: Negative. PULMONARY: Negative. CARDIAC: Negative. : Negative. SKIN: There is no other rash. PHYSICAL EXAMINATION GENERAL: She is currently alert and oriented, does not seem to be in acute distress. VITALS: Stable, currently afebrile. HEENT: She is not icteric. NECK: Supple. CHEST: Clear. COR: No murmur. ABDOMEN: Soft. Bowel sounds are present. IMPRESSION: History of urinary tract infection with multidrug resistance. The patient has been on meropenem. Will obtain urine culture and sensitivity. She is currently on meropenem. We will discuss with urology and hematology-oncology. Will follow with you. Thank you for asking me to see this patient. ZACK WHITE MD Job#: [id number]
[2018-03-17] MEDS: TEMAZEPAM 15 MG CAP PO SCH (21:00)
[2018-03-18] VITALS: BP 100/58
[2018-03-18] MEDS: KETOROLAC TROMETHAMINE 30 MG/ML VIAL IV PRN (01:15)
[2018-03-18] MEDS: MORPHINE SULFATE 1 MG/ML 30ML PCA IV PRN (01:24)
[2018-03-18 04:00] VITALS: BP 94/58
[2018-03-18] MEDS: LACTATED RINGER'S 1,000 ML IV SCH ×2 (06:55→17:26)
[2018-03-18 07:28] LABS: BASOPHILS # (AUTO) 0.1 (0.0-0.1); BASOPHILS % 0.5 % (0.0-1.0); EOSINOPHILS # (AUTO) 0.4 (0.0-0.4); EOSINOPHILS % 4.6 % (0.0-6.0); HEMATOCRIT 29.9 % (34.2-44.1); HEMOGLOBIN 9.5 g/dL (12.0-16.0); LYMPHOCYTES # (AUTO) 2.9 (1.0-3.2); LYMPHOCYTES % 30.6 % (18.0-39.1); MEAN CORPUSCULAR HEMOGLOBIN 28.1 pg (28-32); MEAN CORPUSCULAR HGB CONC 31.8 g/dL (31-35); MEAN CORPUSCULAR VOLUME 88.5 fL (81-99); MONOCYTES % 11.1 % (4.4-11.3); NEUTROPHILS % 52.9 % (38.7-80.0); PLATELET COUNT 364 x10e3/uL (140-360); RED BLOOD COUNT 3.38 x10e6/uL (3.6-5.1); RED CELL DISTRIBUTION WIDTH 13.3 % (11.7-14.4)
[2018-03-18] MEDS: PANTOPRAZOLE SOD 40 MG TABEC PO SCH (07:30)
[2018-03-18] MEDS: METFORMIN HCL 500 MG TAB PO SCH (08:00)
[2018-03-18 08:04] VITALS: BP 98/48
[2018-03-18 09:00] VITALS: BP 98/48
[2018-03-18] MEDS: DESVENLAFAXINE SUCCINATE 50 MG TAB.SR.24H PO SCH (09:00)
[2018-03-18] MEDS: MEROPENEM 1 GM VIAL IV SCH ×2 (09:07→20:00)
--- NOTE | 2018-03-18 10:28 | Operative Report ---
DATE OF PROCEDURE: March 16, 2018 PREOPERATIVE DIAGNOSIS: Uterine fibroids. POSTOPERATIVE DIAGNOSIS: Uterine fibroids. OPERATION PERFORMED: Plastic surgical procedure is incision and layered closure of abdominal incision. ANESTHESIA: General. HISTORY: The patient is a 42-year-old female who is undergoing a total abdominal hysterectomy by the [employer] service. She has a history of previous abdominoplasty which was performed in [place]. The patient has requested that plastic surgery assist in both the opening and closure of the superficial tissues in order to maximize the esthetic outcome because of her history of previous abdominoplasty. Risks, benefits and alternatives of treatment were discussed with the patient and realistic expectations realizing that this was another procedure based on a cosmetic result were discussed with the patient in detail. DETAILS OF PROCEDURE: The patient was brought to the operating theater and after the induction of adequate general anesthesia she was prepped and draped in a supine position. A Kam catheter had been placed. Sequential compression boots had been placed and a time out had been performed. Procedure was begun by marking out the previous abdominoplasty incision. The incision was then marked out from anterior superior iliac spine to anterior superior iliac spine, approximately 20 cm. The incision was then made through the skin and subcutaneous tissues. Bleeding was controlled using electrocautery. The incision was deepened through the subcutaneous tissue until the Giacomo's layer was expected. Instead what was found was a well differentiated and circumscribed empty seroma cavity. This required the tissue to be excised off of the subcutaneous tissue and off of the rectus abdominis fascia. Once this old seroma cavity had been removed, the rectus fascia was then identified. There were Ethibond plication sutures in place which had been placed vertically. The infraumbilical portion of the rectus sheath was incised sharply by the [employer] team, and then the rectus muscles identified. The muscles were retracted to their respective sides of the midline and then the linea alba was incised and the entrance to the abdomen was obtained. At this point, the plastic surgical team left the OR and the completion of the procedure was performed by the [employer] service. At the completion of the abdominal hysterectomy, the posterior rectus fascia had been approximated using 2-0 Vicryl in a running fashion. The anterior rectus fascia was plicated with 2-0 Vicryl in a running fashion as well. At this point, plastic surgical team performed a rectus plication utilizing 2-0 Ethibond in an interrupted buried [id number] fashion tightening up the lower half of the rectus fascia and musculature. This was carried out from the infraumbilical area down to the pubic symphysis. At this point, the wound was irrigated with bacteriostatic saline. A 15-Cambodian FLAKO drain was placed and secured to the skin using 3-0 nylon suture. At this point, Giacomo's fascia was approximated using 3-0 Monocryl in an interrupted buried fashion. The deep dermis was approximated with 4-0 Monocryl in an interrupted buried fashion and finally 4-0 Monocryl running subcuticular stitch was used to approximate the skin. Then 1-inch Steri-Strips were placed on the incision. The drain was placed on suction and was noted to hold suction well. Sterile dressing was applied. Estimated blood loss for this portion of the procedure was negligible. Patient tolerated the procedure well and she was brought to the recovery room in satisfactory condition. She was admitted to the [facility] service for further care and treatment. Job#: [id number]
[2018-03-18] MEDS: IBUPROFEN 600 MG TAB PO PRN ×2 (10:35→17:50)
[2018-03-18] MEDS: HYDROCODONE/APAP 10MG-325MG TAB PO PRN ×2 (10:35→17:50)
[2018-03-18 13:01] VITALS: BP 98/46
[2018-03-18 16:48] VITALS: BP 107/55
[2018-03-18] MEDS ORDERED: MELOXICAM7.5 MG PO (19:15)
--- NOTE | 2018-03-25 11:07 | Progress Note ---
DATE: March 17, 2018 ADDENDUM TO INFECTIOUS DISEASE PROGRESS NOTE SUBJECTIVE: Ms. Gloria was seen and examined. Discussed with Dr. Cadet. PHYSICAL EXAMINATION GENERAL: She is currently alert, oriented, does not seem to be in acute distress. VITAL SIGNS: Stable. Afebrile. HEENT: She is normocephalic, does not appear icteric. NECK: Supple. No JVD, no lymphadenopathy, no thyromegaly. CHEST: Clear bilaterally. HEART: S1 and S2. No S3 or S4, no murmur. ABDOMEN: Soft. Bowel sounds present. She does have a drain which has bloody drainage in it. IMPRESSION: I have discussed the case with Dr. Cadet. The patient had a drain because Dr. Khan, plastic surgery, was involved and she had a history of abdominal surgery and Plastic concerned if she needed any intervention. The patient also continued to have the stent. Urology is concerned that she may need it. My recommendation will be to discharge her home with IV meropenem, obtain urine cultures. We will keep her on IV antibiotics until the drain is out, and if the cultures are negative, then maybe we can discontinue in a week. Discussed with the attending. Discussed with the patient. Job#: [id number] VERA
== END 2018-03-18 20:14 | disposition home or self-care (01) | DRG 742 ==
LOC: OR 09:13 → MED/SURG 20:25
PROVIDERS: ADMIT Obstetrics & Gynecology; ATTEND Obstetrics & Gynecology
PROC: 0UT90ZZ Resection of Uterus, Open Approach (ICD-10-PCS; principal; 2018-03-17)
PROC: 0WQF0ZZ Repair Abdominal Wall, Open Approach (ICD-10-PCS; 2018-03-17)
PROC: 0UT70ZZ Resection of Bilateral Fallopian Tubes, Open Approach (ICD-10-PCS; 2018-03-17)
PROC: 0UT10ZZ Resection of Left Ovary, Open Approach (ICD-10-PCS; 2018-03-17)
DX: D25.9 Leiomyoma of uterus, unspecified (principal); N39.0 Urinary tract infection, site not specified; L76.34 Postprocedural seroma of skin and subcutaneous tissue following other procedure; B96.20 Unspecified Escherichia coli [E. coli] as the cause of diseases classified elsewhere; Z16.12 Extended spectrum beta lactamase (ESBL) resistance; N83.202 Unspecified ovarian cyst, left side; D64.9 Anemia, unspecified; N83.9 Noninflammatory disorder of ovary, fallopian tube and broad ligament, unspecified; Z16.24 Resistance to multiple antibiotics; N13.5 Crossing vessel and stricture of ureter without hydronephrosis
CPT/HCPCS: 36415; 71046; 80048; 80053; 81003; 82948; 83036; 84702; 85025; 86850; 86900; 87086; 88307; 93005; J1100; J1170; J1885; J2001; J2185; J2250; J2270; J2405; J7120

== ENCOUNTER → 2018-10-21 | Outpatient (CLI) | payer BC ==
[~2018-10-21] MED LIST changes: +FUROSEMIDE INJ 10 MG/ML 4 ML VIAL ONE; +MELOXICAM7.5 MG PO; +METFORMIN HCL500 MG PO; +PANTOPRAZOLE SO40 MG PO; +XANAX2 MG PO
--- NOTE | 2018-10-21 19:40 | Diagnostic Imaging Report ---
Renal Scan with Lasix [place] Clinical information: 42 F with hydronephrosis. S/p bilateral kidney infections; bilateral renal stents recently removed. Has 0.8 cm mass on right kidney. Technique: Following intravenous administration of 10 mCi of Tc-99m MAG3, dynamic images of the kidneys in the posterior projection were obtained through 40 minutes. Lasix 40 mg was administered intravenously at 10 minutes post injection of the tracer. Report: Left kidney: Perfusion of the left kidney is prompt. The kidney has a normal reniform shape. Extraction of tracer from the blood pool is normal. Clearance of tracer from the renal parenchyma is prompt. The pelvicalyceal system is minimally dilated. Minimally increased pooling of tracer is seen within the pelvicalyceal system. Drainage of tracer from the pelvicalyceal system is prompt and adequate prior to administration of Lasix. No significant stasis of tracer is seen within the left ureter. Right kidney: Perfusion to the right kidney is prompt. The right kidney has a distorted reniform shape with irregular contour. The right kidney is significantly smaller than the left kidney. Extraction of tracer by the renal parenchyma is normal. Clearance of tracer from the renal parenchyma is prompt. The pelvicalyceal system is not dilated but the renal pelvis is prominent. Minimally increased pooling of tracer is seen within the pelvicalyceal system. Drainage of tracer from the pelvicalyceal system is prompt and adequate prior to administration of Lasix. No significant stasis of tracer is seen within the right ureter. Differential renal function: The left kidney contributes 65% of total renal function and the right kidney contributes 35% (normal 43-57%). Impression: 1. The function of the left kidney is generally normal. Minimal hydronephrosis is present. No physiologically significant obstruction of the renal collecting system is present. 2. The right kidney is reduced in size and this accounts for the decreased differential function of 35%. The function of the remaining renal parenchyma is generally normal. No hydronephrosis is present although the renal pelvis is prominent. No physiologically significant obstruction of the renal collecting system is present. Signed by: Dr. Delmi Santoyo M.D. on 10/21/2018 7:36 PM
== END ==
LOC: NM 13:17
PROVIDERS: ATTEND Urology
DX: N13.30 Unspecified hydronephrosis (principal)
CPT/HCPCS: 78708; A9562; J1940

== ENCOUNTER 2021-07-24 21:48 | Inpatient (IN) | payer BC ==
[~2021-07-24] VITALS: Ht 175.3 cm; Wt 88.5 kg
[~2021-07-24 21:48] MED LIST changes: -FUROSEMIDE INJ 10 MG/ML 4 ML VIAL ONE; +PROPOFOL IV EMULSION 10 MG/ML 20 ML VIAL ONE
[2021-07-24] MEDS ORDERED: SODIUM CHLORIDE 0.9% 1000ML 1,000 ML IV SCH (22:15)
[2021-07-24 22:36] LABS: BASOPHILS # (AUTO) 0.1 (0.0-0.1); BASOPHILS % 0.6 % (0.0-1.0); EOSINOPHILS # (AUTO) 0.1 (0.0-0.4); EOSINOPHILS % 1.3 % (0.0-6.0); HEMATOCRIT 33.6 % (34.2-44.1); HEMOGLOBIN 10.1 g/dL (12.0-16.0); LYMPHOCYTES # (AUTO) 3.8 (1.0-3.2); LYMPHOCYTES % 35.4 % (18.0-39.1); MEAN CORPUSCULAR HEMOGLOBIN 25.6 pg (28-32); MEAN CORPUSCULAR HGB CONC 30.1 g/dL (31-35); MEAN CORPUSCULAR VOLUME 85.1 fL (81-99); MONOCYTES # (AUTO) 0.9 (0.2-0.8); MONOCYTES % 8.6 % (4.4-11.3); NEUTROPHILS # (AUTO) 5.8 (2.1-6.9); NEUTROPHILS % 53.7 % (38.7-80.0); PLATELET COUNT 399 x10e3/uL (140-360); RED BLOOD COUNT 3.95 x10e6/uL (3.6-5.1); RED CELL DISTRIBUTION WIDTH 14.5 % (11.7-14.4)
[2021-07-24 22:56] LABS: ALBUMIN/GLOBULIN RATIO 0.8 (0.8-2.0); ANION GAP 13.4 mmol/L (8-16); CALCIUM 8.6 mg/dL (8.4-10.2); CREATINE KINASE 51 IU/L (29-168); CREATININE, SERUM 0.68 mg/dL (0.57-1.11); POTASSIUM 4.4 mmol/L (3.5-5.1)
[2021-07-24] MEDS ORDERED: METOPROLOL TARTRATE INJ 1 MG/ML VIAL IV PRN (23:15)
[2021-07-24] MEDS ORDERED: TEMAZEPAM 7.5 MG CAP PO PRN (23:15)
[2021-07-24] MEDS ORDERED: POLYETHYLENE GLYCOL 3350 17 GM PACK PO PRN (23:15)
[2021-07-24] MEDS ORDERED: ONDANSETRON HCL INJ 2MG/ML 2ML 2 MG/ML VIAL IV PRN (23:15)
[2021-07-24] MEDS ORDERED: ACETAMINOPHEN 325 MG TAB PO PRN (23:15)
[2021-07-24 23:48] LABS: CLARITY,URINE CLEAR (CLEAR); COLOR,URINE YELLOW (YELLOW); KETONES,URINE NEGATIVE (NEGATIVE); LEUKOCYTE ESTERASE ,URINE NEGATIVE (NEGATIVE); NITRITE,URINE NEGATIVE (NEGATIVE); PROTEIN,URINE DIPSTICK NEGATIVE (NEGATIVE); URINE UROBILINOGEN 0.2 mg/dL (0.2 - 1)
[2021-07-24 23:54] LABS: BACTERIA,URINE FEW /HPF; EPITHELIAL CELLS,URINE MANY /LPF; RBC,URINE 0-5 /HPF (0-5); WBC,URINE (MAN) 0-5 /HPF (0-5)
[2021-07-25] MEDS: CEFEPIME 1 GM in SODIUM CHLORIDE 0.9% 50ML 50 ML IV SCH ×3 (00:14→21:41)
[2021-07-25] MEDS: Vancomycin IV 1 GM in SODIUM CHLORIDE 0.9% 250ML 250 ML IV SCH ×2 (01:09→23:41)
[2021-07-25] MEDS ORDERED: HYDROCODONE/APAP 10MG-325MG TAB PO ONE (03:00)
[2021-07-25] MEDS: SODIUM CHLORIDE 0.9% 1000ML 1,000 ML IV SCH ×4 (03:32→21:41)
[2021-07-25 06:15] LABS: BASOPHILS # (AUTO) 0.1 (0.0-0.1); BASOPHILS % 0.6 % (0.0-1.0); EOSINOPHILS # (AUTO) 0.2 (0.0-0.4); EOSINOPHILS % 1.6 % (0.0-6.0); HEMATOCRIT 31.8 % (34.2-44.1); HEMOGLOBIN 9.8 g/dL (12.0-16.0); LYMPHOCYTES # (AUTO) 4.6 (1.0-3.2); LYMPHOCYTES % 36.4 % (18.0-39.1); MEAN CORPUSCULAR HEMOGLOBIN 25.8 pg (28-32); MEAN CORPUSCULAR HGB CONC 30.8 g/dL (31-35); MEAN CORPUSCULAR VOLUME 83.7 fL (81-99); MONOCYTES % 7.5 % (4.4-11.3); NEUTROPHILS # (AUTO) 6.7 (2.1-6.9); NEUTROPHILS % 53.4 % (38.7-80.0); PLATELET COUNT 399 x10e3/uL (140-360); RED CELL DISTRIBUTION WIDTH 14.3 % (11.7-14.4)
[2021-07-25 06:54] LABS: CALCIUM 8.4 mg/dL (8.4-10.2); CREATININE, SERUM 0.6 mg/dL (0.57-1.11)
[2021-07-25 07:13] LABS: CHOL/HDL RATIO 2.4 (3.0-3.6); MAGNESIUM 1.8 MG/DL (1.3-2.1); PHOSPHORUS 2.9 MG/DL (2.3-4.7)
[2021-07-25 07:19] LABS: CREATINE KINASE 48 IU/L (29-168)
[2021-07-25 07:32] LABS: THYROID STIMULATING HORMONE 4.986 uIU/mL (0.350-4.940)
[2021-07-25] MEDS: FAMOTIDINE 20 MG TAB PO SCH ×2 (08:03→17:07)
[2021-07-25] MEDS ORDERED: LEVOTHYROXINE50 MCG PO (08:25)
[2021-07-25] MEDS ORDERED: LINZESS72 MCG PO (08:25)
[2021-07-25] MEDS ORDERED: DICLOFENAC SODI75 MG PO (08:25)
[2021-07-25] MEDS ORDERED: ADDERALL 30 MG30 MG PO (08:25)
[2021-07-25] MEDS ORDERED: MINIPRESS1 MG PO (08:25)
[2021-07-25] MEDS ORDERED: LEVOCETIRIZINE D5 MG PO (08:25)
[2021-07-25] MEDS ORDERED: VITAMIN D350 MCG PO (08:25)
[2021-07-25] MEDS ORDERED: MONTELUKAST SOD10 MG PO (08:25)
[2021-07-25] MEDS: DOCUSATE SODIUM 100 MG CAP PO SCH ×2 (09:00→17:07)
[2021-07-25] MEDS: HYDROCODONE/APAP 10MG-325MG TAB PO PRN (12:26)
[2021-07-25 16:07] LABS: CREATINE KINASE 54 IU/L (29-168)
[2021-07-25 17:55] VITALS: BP 138/89
[2021-07-25 19:00] VITALS: BP 112/69
[2021-07-25 20:00] VITALS: BP 112/69
[2021-07-25] MEDS: DESVENLAFAXINE SUCCINATE 50 MG TAB.SR.24H PO SCH (20:43)
[2021-07-25] MEDS ORDERED: PANTOPRAZOLE SOD 40 MG TABEC PO SCH (21:00)
[2021-07-25] MEDS: DICLOFENAC SOD 50 MG TAB PO SCH (21:00)
[2021-07-25] MEDS: PRAZOSIN HCL 1 MG CAP PO SCH (21:00)
[2021-07-25] MEDS: MONTELUKAST SODIUM 10 MG TAB PO SCH (21:00)
[2021-07-25] MEDS: ALPRAZOLAM 1 MG TAB PO SCH (21:41)
[2021-07-25] MEDS ORDERED: IOPAMIDOL 370 MG/ML 200 ML INFUS..BTL INJ ONE (22:38)
[2021-07-25] MEDS ORDERED: SODIUM CHLORIDE 0.9% 50ML 50 ML ONE (22:38)
[2021-07-26] VITALS (11 sets, daily range): BP systolic 99–123; BP diastolic 57–72
[2021-07-26 01:45] LABS: FERRITIN 3.51 ng/mL (4.63-204.00)
[2021-07-26] MEDS: LEVOTHYROXINE SODIUM 50 MCG TAB PO SCH (05:54)
[2021-07-26] MEDS: SODIUM CHLORIDE 0.9% 1000ML 1,000 ML IV SCH ×3 (06:54→21:18)
[2021-07-26] MEDS: DOCUSATE SODIUM 100 MG CAP PO SCH ×2 (09:00→16:54)
[2021-07-26] MEDS: LORATADINE 10 MG TAB PO SCH (09:00)
[2021-07-26] MEDS: METFORMIN HCL 500 MG TAB PO SCH (09:00)
[2021-07-26] MEDS: DICLOFENAC SOD 50 MG TAB PO SCH ×2 (09:00→21:13)
[2021-07-26] MEDS: NON-FORMULARY MEDICATION (Amphet Asp/Amphet/D-Amphet (Adderall 30 Mg Tablet) 30 MG) PO SCH (09:00)
[2021-07-26] MEDS: CEFEPIME 1 GM in SODIUM CHLORIDE 0.9% 50ML 50 ML IV SCH ×2 (09:40→21:12)
[2021-07-26] MEDS ORDERED: HYDROMORPHONE 1MG/1ML INJ IV ONE (10:30)
[2021-07-26] MEDS ORDERED: SODIUM CHLORIDE 0.9% 1000ML 1,000 ML ONE (10:34)
[2021-07-26] MEDS ORDERED: BENZOCAINE 20% SPR 60 ML CAN ONE (10:34)
[2021-07-26] MEDS: HYDROCODONE/APAP 10MG-325MG TAB PO PRN (17:13)
[2021-07-26] MEDS ORDERED: SIMETHICONE 40 MG/0.6 ML BTL PO ONE (18:00)
[2021-07-26] MEDS: PRAZOSIN HCL 1 MG CAP PO SCH (21:00)
[2021-07-26] MEDS: MONTELUKAST SODIUM 10 MG TAB PO SCH (21:11)
[2021-07-26] MEDS: DESVENLAFAXINE SUCCINATE 50 MG TAB.SR.24H PO SCH (21:12)
[2021-07-26] MEDS: ALPRAZOLAM 1 MG TAB PO SCH (21:14)
[2021-07-26] MEDS: Vancomycin IV 1 GM in SODIUM CHLORIDE 0.9% 250ML 250 ML IV SCH (23:34)
[2021-07-27] VITALS: BP 111/76
[2021-07-27 04:00] VITALS: BP 113/82
[2021-07-27 05:29] LABS: BASOPHILS # (AUTO) 0.1 (0.0-0.1); BASOPHILS % 0.6 % (0.0-1.0); EOSINOPHILS # (AUTO) 0.2 (0.0-0.4); EOSINOPHILS % 2.3 % (0.0-6.0); HEMOGLOBIN 9.4 g/dL (12.0-16.0); LYMPHOCYTES # (AUTO) 3.8 (1.0-3.2); LYMPHOCYTES % 37.7 % (18.0-39.1); MEAN CORPUSCULAR HEMOGLOBIN 25.1 pg (28-32); MEAN CORPUSCULAR HGB CONC 30.3 g/dL (31-35); MEAN CORPUSCULAR VOLUME 82.9 fL (81-99); MONOCYTES # (AUTO) 0.9 (0.2-0.8); MONOCYTES % 8.7 % (4.4-11.3); NEUTROPHILS # (AUTO) 5.1 (2.1-6.9); NEUTROPHILS % 50.3 % (38.7-80.0); PLATELET COUNT 396 x10e3/uL (140-360); RED BLOOD COUNT 3.74 x10e6/uL (3.6-5.1); RED CELL DISTRIBUTION WIDTH 14.3 % (11.7-14.4)
[2021-07-27] MEDS: LEVOTHYROXINE SODIUM 50 MCG TAB PO SCH (05:43)
[2021-07-27] MEDS: HYDROCODONE/APAP 10MG-325MG TAB PO PRN ×2 (05:43→13:27)
[2021-07-27 05:54] LABS: ANION GAP 13.6 mmol/L (8-16); CREATININE, SERUM 0.58 mg/dL (0.57-1.11); POTASSIUM 4.6 mmol/L (3.5-5.1)
[2021-07-27 07:51] VITALS: BP 137/75
[2021-07-27] MEDS: SODIUM CHLORIDE 0.9% 1000ML 1,000 ML IV SCH ×2 (08:43→14:15)
[2021-07-27] MEDS: CEFEPIME 1 GM in SODIUM CHLORIDE 0.9% 50ML 50 ML IV SCH (08:52)
[2021-07-27] MEDS: METFORMIN HCL 500 MG TAB PO SCH (08:53)
[2021-07-27] MEDS: DICLOFENAC SOD 50 MG TAB PO SCH (08:53)
[2021-07-27] MEDS: LORATADINE 10 MG TAB PO SCH (08:53)
[2021-07-27] MEDS ORDERED: CYANOCOBALAMIN INJ 1,000 MCG/ML VIAL IM SCH (09:00)
[2021-07-27] MEDS ORDERED: IRON SUCROSE 100 MG in SODIUM CHLORIDE 0.9% 100 ML 100 ML IV SCH (09:00)
[2021-07-27] MEDS: DOCUSATE SODIUM 100 MG CAP PO SCH (09:00)
[2021-07-27] MEDS: NON-FORMULARY MEDICATION (Amphet Asp/Amphet/D-Amphet (Adderall 30 Mg Tablet) 30 MG) PO SCH (10:49)
[2021-07-27 11:39] VITALS: BP 104/59
[2021-07-27 12:04] VITALS: BP 104/59
[2021-07-27] MEDS ORDERED: IRON 100 PLUS1 EACH PO (14:08)
[2021-07-27] MEDS ORDERED: PANTOPRAZOLE SO40 MG PO (14:08)
[2021-07-27] MEDS ORDERED: LINZESS72 MCG PO (14:08)
[2021-07-27] MEDS ORDERED: B12-FOLIC ACID1 EACH PO (14:08)
[2021-07-27] MEDS ORDERED: Vancomycin IV 1.25 GM in SODIUM CHLORIDE 0.9% 250ML 250 ML IV SCH (17:00)
== END 2021-07-27 15:45 | disposition home or self-care (01) | DRG 307 ==
LOC: ER 22:10 → ERHOLD 22:34 → MED/SURG3 07-25 17:54
PROVIDERS: ADMIT Internal Medicine; ATTEND Internal Medicine
DX: I38 Endocarditis, valve unspecified (principal); K92.1 Melena; K59.00 Constipation, unspecified; L40.50 Arthropathic psoriasis, unspecified; D50.9 Iron deficiency anemia, unspecified; I10 Essential (primary) hypertension; Z20.822 Contact with and (suspected) exposure to COVID-19; Z90.49 Acquired absence of other specified parts of digestive tract; Z90.710 Acquired absence of both cervix and uterus; K57.90 Diverticulosis of intestine, part unspecified, without perforation or abscess without bleeding; N83.8 Other noninflammatory disorders of ovary, fallopian tube and broad ligament; K76.0 Fatty (change of) liver, not elsewhere classified; E03.9 Hypothyroidism, unspecified; D51.9 Vitamin B12 deficiency anemia, unspecified
CPT/HCPCS: 36415; 71046; 74018; 74177; 76830; 76856; 80048; 80053; 80061; 80202; 81001; 82270; 82550; 82553; 82607; 82728; 82746; 83036; 83540; 83605; 83735; 84100; 84443; 84466; 84484; 84702; 85025; 85045; 87040; 93005; 93306; 93307; 93312; 93325; 96360; 99284; J0692; J1170; J1756; J3370; J3420; J7030; J7050; Q9967; U0002